=== PATIENT | female | born 1940 | race Caucasian/White ===

== ENCOUNTER 2017-11-18 08:09 | Day surgery (SDC) | payer MEDICARE, OTHER ==
[~2017-11-18 08:09] MED LIST: BUPIVACAINE HCL 0.75% INJ/PF (7.5 MG/1 ML) 10 ML SDV OS PRN; EPINEPHRINE INJ/PF 1 MG/1 ML AMPULE ONE; KETOROLAC TROMETHAMINE 0.45% 4 DROP/0.4 ML DROPERETTE OS PRN; LIDOCAINE 1% INJ-PF (10 MG/ML) 30 ML SDV ONE; LIDOCAINE 4% INJ/PF (40 MG/ML) 5 ML AMPUL OS PRN
[2017-11-18] MEDS: TETRACAINE HCL 0.5% OPH SOLN 0.6 ML DROPERETTE OS PRN ×2 (09:03→09:26)
[2017-11-18] MEDS: TROPICAMIDE 1% OPH SOLN 3 ML OS PRN ×3 (09:04→09:25)
[2017-11-18] MEDS: CYCLOPENTOLATE 0.2%/PHENYLEPHRINE 1% OPH SOLN 2 ML OS PRN ×3 (09:04→09:25)
[2017-11-18] MEDS: BESIFLOXACIN HCL 0.6% OPH SUSP 5 ML BOTTLE OS PRN ×4 (09:05→10:08)
[2017-11-18] MEDS ORDERED: MIDAZOLAM 2 MG/2 ML INJ ONE (09:25)
[2017-11-18] MEDS ORDERED: FENTANYL CITRATE INJ/PF 100 MCG/2 ML AMPUL ONE (09:26)
[2017-11-18] MEDS: CHONDR SU A NA/HYALUR INTRAOC KIT (SURGICARE) ONE ×2 (10:00)
--- NOTE | 2017-11-18 11:13 | [facility] OPERATIVE REPORT E ---
[facility] Operative Report NAME: LAUREN ANG AGE: 77Y DATE OF SURGERY: 11/18/2017 ROOM: PREOPERATIVE DIAGNOSIS: Cataract, left eye. POSTOPERATIVE DIAGNOSIS: Cataract, left eye. OPERATION: Phacoemulsification with posterior chamber intraocular lens, left eye. SURGEON: ALFREDO ROBINS M.D. ANESTHESIA: Topical with MAC. INDICATIONS FOR SURGERY: Difficulty reading captions on TV. PROCEDURE: The patient was brought to the Operating Room and placed on the operative table. Following tetracaine drops, topical anesthesia was administered. This consisted of instrument wipe pledgets soaked in a solution of 4% Xylocaine mixed with 0.75% Marcaine in a 1:2 ratio. A 2 x 1 cm pledget was placed in the superior fornix. A 1 x 1 cm pledget was placed in the inferior fornix. The eye was patched shut for 5 minutes. The patch was removed. The eye was sterilely prepped and draped in the usual manner. Lid speculum was placed in the eye. The pledgets were removed. 4-0 black silk sutures were placed around the superior and the inferior rectus muscles to be used as traction. A conjunctival peritomy was made at the 10 o'clock position. Hemostasis was obtained with bipolar cautery. A posterior limbal groove was created using a crescent knife and dissected anteriorly towards the cornea. A sharp point blade was used to create a paracentesis site at the 2 o'clock position. A 2.4 mm keratome was used to enter the anterior chamber through the groove. Viscoelastic was injected into the anterior chamber. An anterior capsulotomy was performed using Utrata forceps in a capsulorrhexis fashion. Hydrodissection and hydrodelineation were performed. Phacoemulsification was performed in [id number]-[id number] technique. A total of 1 minute 13 seconds phaco time was used. Following this, the I/A unit was used to remove residual cortex. Viscoelastic was injected into the capsular bag. Intraocular lens model [id number], 20.5 diopters, serial number [id number] was placed in the capsular bag. The I/A unit was used to remove residual viscoelastic. The wound was seen to be watertight under high and low pressure, and no sutures were placed. The intraocular lens was well centered. The pressure was adjusted in the eye to normal pressure. The 4-0 black silk sutures and lid speculum were removed. The eye was shielded after Besivance drops were placed. The patient tolerated the procedure well and was sent to the Recovery Room in good condition. DICTATING PHYSICIAN: ALFREDO ROBINS M.D. [id number] PHY#: [id number] ID: [id number] JOB#: [id number] ACCT: [id number] cc:ALFREDO ROBINS M.D. >
--- NOTE | 2017-11-18 11:21 | [facility] DISCHARGE SUMMARY E ---
[facility] Discharge Summary NAME: LAUREN ANG AGE: 77Y ADMITTED: 11/18/2017 DISCHARGED: FINAL DIAGNOSIS: Cataract, left eye. HOSPITAL COURSE: The patient is a 77-year-old lady who underwent uneventful cataract extraction with intraocular lens implant left eye on 11/18/2017. She will be discharged to home. She is instructed to resume preoperative medications, take Tylenol as needed for discomfort, to keep her eye shielded, to use Besivance, Durezol, and Prolensa at 3 p.m. and 8 p.m., and to follow up in my office in 1 day. DICTATING PHYSICIAN: ALFREDO ROBINS M.D. [id number] PHY#: [id number] ID: [id number] JOB#: [id number] ACCT: [id number] cc:ALFREDO ROBINS M.D. >
== END 2017-11-18 10:51 | disposition home or self-care (01) ==
LOC: SC 08:09
PROVIDERS: ATTEND Ophthalmology
DX: H25.13 Age-related nuclear cataract, bilateral (principal); H04.123 Dry eye syndrome of bilateral lacrimal glands; H40.013 Open angle with borderline findings, low risk, bilateral; M19.90 Unspecified osteoarthritis, unspecified site; I48.91 Unspecified atrial fibrillation; K21.9 Gastro-esophageal reflux disease without esophagitis; E78.00 Pure hypercholesterolemia, unspecified; Z79.01 Long term (current) use of anticoagulants; Z88.8 Allergy status to other drugs, medicaments and biological substances; Z79.82 Long term (current) use of aspirin; Z79.891 Long term (current) use of opiate analgesic
CPT/HCPCS: 66984; V2632; J2250; J3490 ×4; A9270; J3010; 142; J0171

== ENCOUNTER 2017-12-09 09:21 | Day surgery (SDC) | payer MEDICARE, OTHER ==
[~2017-12-09 09:21] MED LIST changes: +BUPIVACAINE HCL 0.75% INJ/PF (7.5 MG/1 ML) 10 ML SDV OD PRN; -BUPIVACAINE HCL 0.75% INJ/PF (7.5 MG/1 ML) 10 ML SDV OS PRN; -EPINEPHRINE INJ/PF 1 MG/1 ML AMPULE ONE; -KETOROLAC TROMETHAMINE 0.45% 4 DROP/0.4 ML DROPERETTE OS PRN; -LIDOCAINE 1% INJ-PF (10 MG/ML) 30 ML SDV ONE; +LIDOCAINE 4% INJ/PF (40 MG/ML) 5 ML AMPUL OD PRN; -LIDOCAINE 4% INJ/PF (40 MG/ML) 5 ML AMPUL OS PRN; +MIDAZOLAM 2 MG/2 ML INJ ONE
[2017-12-09] MEDS ORDERED: CHONDR SU A NA/HYALUR INTRAOC KIT (SURGICARE) ONE (09:59)
[2017-12-09] MEDS ORDERED: LIDOCAINE 1% INJ-PF (10 MG/ML) 30 ML SDV ONE (09:59)
[2017-12-09] MEDS: TROPICAMIDE 1% OPH SOLN 3 ML OD PRN ×3 (10:37→11:00)
[2017-12-09] MEDS: CYCLOPENTOLATE 0.2%/PHENYLEPHRINE 1% OPH SOLN 2 ML OD PRN ×3 (10:37→11:00)
[2017-12-09] MEDS: TETRACAINE HCL 0.5% OPH SOLN 0.6 ML DROPERETTE OD PRN ×2 (10:37→11:00)
[2017-12-09] MEDS: BESIFLOXACIN HCL 0.6% OPH SUSP 5 ML BOTTLE OD PRN ×3 (10:37→11:51)
[2017-12-09] MEDS: KETOROLAC TROMETHAMINE 0.45% 4 DROP/0.4 ML DROPERETTE OD PRN ×2 (10:37→12:02)
--- NOTE | 2018-01-15 21:21 | [facility] OPERATIVE REPORT E ---
[facility] Operative Report NAME: LAUREN ANG AGE: 77Y DATE OF SURGERY: 12/09/2017 ROOM: PREOPERATIVE DIAGNOSIS: CATARACT, RIGHT EYE. POSTOPERATIVE DIAGNOSIS: CATARACT, RIGHT EYE. OPERATION: Phacoemulsification with posterior chamber intraocular lens, right eye. SURGEON: ALFREDO ROBINS M.D. ANESTHESIA: Topical with MAC. INDICATIONS FOR SURGERY: Difficulty reading. PROCEDURE: The patient was brought to the Operating Room and placed on the operative table. Following tetracaine drops, topical anesthesia was administered. This consisted of instrument wipe pledgets soaked in a solution of 4% Xylocaine mixed with 0.75% Marcaine in a 1:2 ratio. A 2 x 1 cm pledget was placed in the superior fornix. A 1 x 1 cm pledget was placed in the inferior fornix. The eye was patched shut for 5 minutes. The patch was removed. The eye was sterilely prepped and draped in the usual manner. Lid speculum was placed in the eye. The pledgets were removed. 4-0 black silk sutures were placed around the superior and the inferior rectus muscles to be used as traction. A conjunctival peritomy was made at the 10 o'clock position. Hemostasis was obtained with bipolar cautery. A posterior limbal groove was created using a crescent knife and dissected anteriorly towards the cornea. A sharp point blade was used to create a paracentesis site at the 2 o'clock position. A 2.4 mm keratome was used to enter the anterior chamber through the groove. Viscoelastic was injected into the anterior chamber. An anterior capsulotomy was performed using Utrata forceps in a capsulorrhexis fashion. Hydrodissection and hydrodelineation were performed. Phacoemulsification was performed in kderrh-yvj-qktwevo technique. A total of 9.98 CDE phaco time was used. Following this, the I/A unit was used to remove residual cortex. Viscoelastic was injected into the capsular bag. Intraocular lens model SN60WF, 19.0 diopters, serial number [id number] was placed in the capsular bag. The I/A unit was used to remove residual viscoelastic. The wound was seen to be watertight under high and low pressure, and no sutures were placed. The intraocular lens was well centered. The pressure was adjusted in the eye to normal pressure. The 4-0 black silk sutures and lid speculum were removed. The eye was shielded after Besivance drops were placed. The patient tolerated the procedure well and was sent to the Recovery Room in good condition. DICTATING PHYSICIAN: ALFREDO ROBINS M.D. DICTATING PHYSICIAN: ALFREDO ROBINS M.D. [id number] PHY#: [id number] ID: [id number] JOB#: [id number] ACCT: [id number] cc:ALFREDO ROBINS M.D. >
--- NOTE | 2018-01-15 21:21 | [facility] DISCHARGE SUMMARY E ---
[facility] Discharge Summary NAME: LAUREN ANG AGE: 77Y ADMITTED: 12/09/2017 DISCHARGED: 12/09/2017 HOSPITAL COURSE: The patient is a 77-year-old lady who underwent uneventful cataract extraction with intraocular lens implant, right eye, on 12/09/2017. She will be discharged to home. DISCHARGE INSTRUCTIONS: She is instructed to resume preoperative medications. Take Tylenol as needed for discomfort. To keep her eye shielded. To use Durezol, Prolensa and Besivance at 3 p.m. and 8 p.m. To follow up in my office in 1 day. DICTATING PHYSICIAN: ALFREDO ROBINS M.D. [id number] PHY#: [id number] ID: [id number] JOB#: [id number] ACCT: [id number] cc:ALFREDO ROBINS M.D. >
== END 2017-12-09 12:30 | disposition home or self-care (01) ==
LOC: SC 09:21
PROVIDERS: ATTEND Ophthalmology
DX: H25.11 Age-related nuclear cataract, right eye (principal); I10 Essential (primary) hypertension; K21.9 Gastro-esophageal reflux disease without esophagitis; I48.91 Unspecified atrial fibrillation; Z79.899 Other long term (current) drug therapy; Z79.01 Long term (current) use of anticoagulants; Z88.8 Allergy status to other drugs, medicaments and biological substances; Z87.891 Personal history of nicotine dependence
CPT/HCPCS: 66984; V2632; J2250; J3490 ×4; A9270; 142

== ENCOUNTER → 2018-08-14 | Outpatient (CLI) | payer MEDICARE, OTHER ==
--- NOTE | 2018-08-14 10:44 | RADIOLOGY REPORT (SQ) ---
EXAM DESCRIPTION: MRI HEAD WITHOUT COMPLETED DATE/TIME: 08/14/2018 8:25 am REASON FOR STUDY: ATAXIA (R27.0) R27.0 ATAXIA, UNSPECIFIED COMPARISON: None. TECHNIQUE: Multiplanar imaging includes non-contrasted T1, T2, FLAIR, and diffusion with ADC map seq uences. Images stored on PACS. LIMITATIONS: None. FINDINGS: ANATOMY: No anomalies. Normal vascular flow voids. Pituitary fossa normal. CSF SPACES: Normal in size and contour. No hemorrhage. CEREBRUM: Sulci and gyri normal in size and contour. Multiple small areas of increased white matter signal on FLAIR imaging. No evidence of hemorrhage, mass, or extraaxial fluid collection. POSTERIOR FOSSA: No signal alteration. No hemorrhage. No edema, masses or mass effect. Internal esmer tory canals, cerebello-pontine angles, mastoids normal. DIFFUSION IMAGING: Negative for acute or sub-acute infarction. ORBITS: No masses. Globes normal. PARANASAL SINUSES: No fluid levels. Mucosa normal. OTHER: No other significant finding. IMPRESSION: Chronic microvascular ischemia with no acute intracranial imaging findings. EVIDENCE OF ACUTE STROKE: NO. TECHNICAL DOCUMENTATION: JOB ID: [id number] [employer]- All Rights Reserved Reading location - IP/workstation name: [email or web address]
== END ==
LOC: RAD 07:27
PROVIDERS: ATTEND Internal Medicine
DX: I67.82 Cerebral ischemia (principal); R27.0 Ataxia, unspecified
CPT/HCPCS: 70551

== ENCOUNTER → 2018-12-10 | Outpatient (CLI) | payer MEDICARE, OTHER ==
--- NOTE | 2018-12-10 16:19 | RADIOLOGY REPORT (SQ) ---
EXAM DESCRIPTION: CAROTID DOPPLER COMPLETED DATE/TIME: 12/10/2018 2:56 pm REASON FOR STUDY: DIZZINESS R42 DIZZINESS AND GIDDINESS COMPARISON: CT brain 07/15/2011, 05/15/2013 MRI brain 08/14/2018 TECHNIQUE: Grayscale ultrasound, Doppler velocity and spectra, and color Doppler images acquired of the extra-cranial carotid and vertebral arteries. Images stored on PACS. LIMITATIONS: None. FINDINGS: RIGHT CAROTID CCA Velocities: Within normal limits. Right common carotid artery peak systolic velocity 0.68 m/sec ICA Velocities Peak systolic 0.32 m/s. End diastolic 0.16 m/s. Proximal ICA/CCA peak systolic ratio 2.2. Very heavy calcific plaque at the right carotid bifurcation is present with acoustic shadowing. Dist al to the shadowing plaque, velocities suggest against flow significant stenosis. LEFT CAROTID CCA Velocities: Within normal limits. Left common carotid artery peak systolic velocity 0.70 m/sec. ICA Velocities Peak systolic 0.46 m/s. End diastolic 0.13 m/s. Proximal ICA/CCA peak systolic ratio 1.1 Very heavy calcific plaque at the left carotid bifurcation is present with acoustic shadowing. Dista l to the shadowing plaque, velocities suggest against flow significant stenosis VERTEBRAL ARTERIES: Color flow documented in the right vertebral antegrade, unable to obtain Doppler tracing. Antegrade pulsatile flow left vertebral artery with normal waveform. SUBCLAVIAN ARTERIES: Not examined OTHER: No other significant finding. IMPRESSION: Very heavily calcified carotid bifurcations. No flow significant stenosis by velocity. COMMENT: Quality ID #[id number]: Velocity criteria are extrapolated from the diameter data as defined by t he Society of Radiologists in Ultrasound Consensus Conference. Radiology 2003: 229; 340-346. TECHNICAL DOCUMENTATION: JOB ID: [id number] [employer]- All Rights Reserved Reading location - IP/workstation name: [email or web address]
== END ==
LOC: SP 12:42
PROVIDERS: ATTEND Family Medicine
DX: I65.22 Occlusion and stenosis of left carotid artery (principal); R42 Dizziness and giddiness
CPT/HCPCS: 93880

== ENCOUNTER 2018-12-16 15:35 | Inpatient (IN) | payer MEDICARE, OTHER ==
[2018-12-16] MEDS ORDERED: NORMAL SALINE 1000 ML 1,000 ML IV ONE ×2 (16:12→16:35)
--- NOTE | 2018-12-16 16:12 | ER Document Report ---
ED Medical Screen (RME) - General Chief Complaint: Diarrhea Stated Complaint: DIARRHEA Time Seen by Provider: 12/16/18 16:01 Primary Care Provider: NABILA NUNEZ MD [Primary Care Provider] - Follow up as needed TRAVEL OUTSIDE OF THE [place] IN LAST 30 DAYS: No - HPI Notes: 12/16/18 16:13 78-year-old female to the emergency department with with complaints of 9 days of profuse watery diarrhea. She states that she has had upwards of 10 episodes daily. Of note her has been under treatment for C. difficile colitis since the spring. He currently still has active disease in either is completing a round of vancomycin or has just completed around. Patient states that she feels weak. She states that she has been trying to hydrate but without success. She denies any recent travel or recent antibiotic use herself. She denies any recent new diet changes. I performed a medical screening exam on patient. I have ordered initial labs as well as stool cultures to evaluate patient further. Ordered liter of fluid as well. Patient agrees with the plan. - Related Data Allergies/Adverse Reactions: nickel [Nickel] Allergy (Severe, Verified 12/09/17 11:11) breaks out epinephrine [Epinephrine] Adverse Reaction (Severe, Verified 12/09/17 11:11) makes me pass out Past Medical History - Past Medical History Cardiac Medical History: Reports: Hx Atrial Fibrillation, Hx Hypercholesterolemia, Hx Hypertension - meds x 15 yrs Denies: Hx Coronary Artery Disease, Hx Heart Attack Pulmonary Medical History: Denies: Hx Asthma, Hx Bronchitis, Hx COPD, Hx Pneumonia Neurological Medical History: Denies: Hx Cerebrovascular Accident, Hx Seizures GI Medical History: Denies: Hx Hepatitis, Hx Hiatal Hernia, Hx Ulcer Musculoskeltal Medical History: 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 Infectious Medical History: Denies: Hx Hepatitis Past Surgical History: Denies: Hx Mastectomy, Hx Open Heart Surgery, Hx Pacema ker - Immunizations Hx Diphtheria, Pertussis, Tetanus Vaccination: Yes Physical Exam - Vital signs Vitals: Temp Pulse Resp BP Pulse Ox 97.7 F 90 20 60/36 L 95 12/16/18 15:45 12/16/18 15:45 12/16/18 15:45 12/16/18 15:45 12/16/18 15:45 Course - Vital Signs Vital signs: Temp Pulse Resp BP Pulse Ox 97.7 F 90 20 72/53 L 95 12/16/18 15:45 12/16/18 15:45 12/16/18 15:45 12/16/18 15:52 12/16/18 15:45 Doctor's Discharge - Discharge Referrals: NABILA NUNEZ MD [Primary Care Provider] - Follow up as needed
--- NOTE | 2018-12-16 16:41 | ER Document Report ---
ED General - General Chief Complaint: Diarrhea Stated Complaint: DIARRHEA Time Seen by Provider: 12/16/18 16:01 Primary Care Provider: NABILA NUNEZ MD [Primary Care Provider] - Follow up as needed TRAVEL OUTSIDE OF THE [place] IN LAST 30 DAYS: No - HPI Patient complains to provider of: diarrhea Notes: 78-year-old female presents with 3-day history of increasing watery diarrhea. Weakness and fatigue is gotten worse and worse with this profuse watery diarrhea. Her has been treated multiple times for C. difficile since the beginning of the year. She is concerned she may have gotten C. difficile. Patient denies fever, abdominal pain, nausea, vomiting. No recent antibiotic use, travel or any other inciting factors to this diarrheal illness she can think of - Related Data Allergies/Adverse Reactions: nickel [Nickel] Allergy (Severe, Verified 12/09/17 11:11) breaks out epinephrine [Epinephrine] Adverse Reaction (Severe, Verified 12/09/17 11:11) makes me pass out Past Medical History - Social History Smoking Status: Former Smoker Drug Abuse: None Family History: Reviewed & Not Pertinent Patient has suicidal ideation: No Patient has homicidal ideation: No - Past Medical History Cardiac Medical History: Reports: Hx Atrial Fibrillation, Hx Hypercholesterolemia, Hx Hypertension - meds x 15 yrs Denies: Hx Coronary Artery Disease, Hx Heart Attack Pulmonary Medical History: Denies: Hx Asthma, Hx Bronchitis, Hx COPD, Hx Pneumonia Neurological Medical History: Denies: Hx Cerebrovascular Accident, Hx Seizures GI Medical History: Denies: Hx Hepatitis, Hx Hiatal Hernia, Hx Ulcer Musculoskeletal Medical History: 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 RESPIRATORY: -cough, -SOB GASTROINTESTINAL: -abdominal pain, -nausea, -vomiting, positive diarrhea GENITOURINARY: -dysuria, -hematuria MUSCULOSKELETAL: -back pain, -neck pain SKIN: -rash or skin lesions. HEMATOLOGIC: -easy bruising or bleeding. LYMPHATIC: -swollen, enlarged glands. NEUROLOGICAL: -altered mental status or loss of consciousness, -headache, - neurologic symptoms PSYCHIATRIC: -anxiety, -depression. ALL OTHER SYSTEMS REVIEWED AND NEGATIVE. Physical Exam - Vital signs Vitals: Temp Pulse Resp BP Pulse Ox 97.7 F 90 20 60/36 L 95 12/16/18 15:45 12/16/18 15:45 12/16/18 15:45 12/16/18 15:45 12/16/18 15:45 - Notes Notes: PHYSICAL EXAMINATION: GENERAL: Well-appearing, well-nourished and in no acute distress. HEAD: Atraumatic, normocephalic. EYES: Pupils equal round and reactive to light, extraocular movements intact, sclera anicteric, conjunctiva are normal. ENT: nares patent, oropharynx clear without exudates. Moist mucous membranes. NECK: Normal range of motion, supple without lymphadenopathy LUNGS: Breath sounds clear to auscultation bilaterally and equal. No wheezes rales or rhonchi. HEART: Regular rate and rhythm without murmurs ABDOMEN: Soft, nontender, normoactive bowel sounds. No guarding, no rebound. No masses appreciated. EXTREMITIES: Normal range of motion, no pitting or edema. No cyanosis. NEUROLOGICAL: Cranial nerves grossly intact. Normal speech, normal gait. Normal sensory and motor exams. PSYCH: Normal mood, normal affect. SKIN: Warm, Dry, normal turgor, no rashes or lesions noted. Course - Re-evaluation Re-evalutation: 12/16/18 16:41 Well-appearing female stable vitals within normal limits, systolic blood pressure is not 60, initial systolic blood pressure recorded 128. Patient states she says that blood pressure at home is wrong she has been ambulatory feeling no lightheaded symptoms. She told the nurse this. Begin aggressive fluid resuscitation. Patient does have a crick recorded systolic blood pressure about 80 1:02 liter fluid in. I presume the switch to cuff this does appear to be her normal blood pressure at this time. Will initiate aggressive fluid resuscitation of 2 L of fluid. Lactic acid drawn as her blood cultures. She had a profound leukocytosis of 23,000. Patient also has significant kidney injury her creatinine is 3.58. She has exposures to C. difficile. Presume she does have a C. difficile infection. Patient has 2 bowel movements but is unable to get the bowel movements into the hat for specimen. Will initiate antibiotic therapy with vancomycin orally and metronidazole IV Patient will be admitted to hospital for further management. 12/16/18 18:02 - Vital Signs Vital signs: Temp Pulse Resp BP Pulse Ox 97.7 F 90 20 72/53 L 95 12/16/18 15:45 12/16/18 15:45 12/16/18 15:45 12/16/18 15:52 12/16/18 15:45 - Laboratory Result Diagrams: 12/16/18 16:40 12/16/18 17:05 Laboratory results interpreted by me: 12/16/18 12/16/18 16:40 17:05 WBC 23.5 H Seg Neuts % (Manual) 85 H Lymphocytes % (Manual) 4 L Abs Neuts (Manual) 21.2 H Carbon Dioxide 21 L BUN 67 H Creatinine 3.58 H Est GFR ( Amer) 15 L Est GFR (MDRD) Non-Af 12 L Total Protein 5.8 L Albumin 3.0 L Critical Care Note - Critical Care Note Total time excluding time spent on procedures (mins): 36 Discharge - Discharge Clinical Impression: Dehydration, C. difficile colitis Hypotension Qualifiers: Hypotension type: unspecified hypotension type Qualified Code(s): I95.9 - Hypotension, unspecified Condition: Stable Disposition: ADMITTED INPATIENT Admitting Provider: Nely (Hospitalist) Unit Admitted: Medical Floor Referrals: NABILA NUNEZ MD [Primary Care Provider] - Follow up as needed
[2018-12-16 16:57] LABS: HEMATOCRIT 42.8 % (36.0-47.0); HEMOGLOBIN 14.4 g/dL (12.0-15.5); MEAN CORPUSCULAR HEMOGLOBIN 31.3 pg (27.0-33.4); MEAN CORPUSCULAR HGB CONC 33.6 g/dL (32.0-36.0); MEAN CORPUSCULAR VOLUME 93 fl (80-97); PLATELET COUNT 350 10^3/uL (150-450); RED BLOOD COUNT 4.61 10^6/uL (3.72-5.28); RED CELL DISTRIBUTION WIDTH 12.8 % (11.5-14.0); WHITE BLOOD COUNT 23.5 10^3/uL (4.0-10.5)
[2018-12-16 17:20] LABS: ABSOLUTE LYMPHOCYTES# (MANUAL) 0.9 10^3/uL (0.5-4.7); ABSOLUTE MONOCYTES # (MANUAL) 1.4 10^3/uL (0.1-1.4); BAND NEUTROPHILS % (MANUAL) 5 % (3-5); BASOPHILS % (MANUAL) 0 % (0-2); EOSINOPHILS % (MANUAL) 0 % (0-6); LYMPHOCYTES % (MANUAL) 4 % (13-45); MONOCYTES % (MANUAL) 6 % (3-13); SEGMENTED NEUTROPHILS % (MAN) 85 % (42-78); TOTAL CELLS COUNTED 100
[2018-12-16 17:29] LABS: POLYCHROMASIA SLIGHT; TOXIC VACUOLATION PRESENT
[2018-12-16 17:30] LABS: PLATELET COMMENT ADEQUATE
[2018-12-16 17:41] LABS: ALKALINE PHOSPHATASE 69 U/L (38-126); ANION GAP 13 (5-19); ASPARTATE AMINO TRANSFERASE 17 U/L (14-36); BILIRUBIN,DIRECT 0.2 mg/dL (0.0-0.4); BILIRUBIN,TOTAL 0.4 mg/dL (0.2-1.3); BLOOD UREA NITROGEN 67 mg/dL (7-20); CALCIUM 9.2 mg/dL (8.4-10.2); CARBON DIOXIDE 21 mmol/L (22-30); CHLORIDE 104 mmol/L (98-107); GLUCOSE 100 mg/dL (75-110); POTASSIUM 4.6 mmol/L (3.6-5.0); TOTAL PROTEIN 5.8 g/dL (6.3-8.2)
[2018-12-16] MEDS ORDERED: VANCOMYCIN HCL INJ 500 MG VIAL PO ONE ×2 (17:50→18:08)
[2018-12-16] MEDS ORDERED: METRONIDAZOLE RTU 500 MG/NS 100 ML IV ONE (17:50)
--- NOTE | 2018-12-16 18:41 | RADIOLOGY REPORT (SQ) ---
EXAM DESCRIPTION: CT ABD/PELVIS NO ORAL OR IV COMPLETED DATE/TIME: 12/16/2018 6:25 pm REASON FOR STUDY: abdominal pain COMPARISON: None. TECHNIQUE: CT scan of the abdomen and pelvis performed without intravenous or oral contrast. Images reviewed with lung, soft tissue, and bone windows. Reconstructed coronal and sagittal MPR images revi ewed. All images stored on PACS. All CT scanners at this facility use dose modulation, iterative reconstruction, and/or weight based d osing when appropriate to reduce radiation dose to as low as reasonably achievable (ALARA). [facility]: Dose Right [facility]: CareDose [facility]: Dose Right [facility]: Teradose 4D [facility]: [employer] RADIATION DOSE: mGy. LIMITATIONS: None. FINDINGS: LOWER CHEST: No significant findings. No nodules or infiltrates. NON-CONTRASTED LIVER, SPLEEN, ADRENALS: Evaluation limited by lack of IV contrast. No identified sign ificant masses. PANCREAS: No masses. No peripancreatic inflammatory changes. GALLBLADDER: No identified stones by CT criteria. No inflammatory changes to suggest cholecystitis. RIGHT KIDNEY AND URETER: No suspicious masses. Assessment limited by lack of IV contrast. No signif icant calcifications. No hydronephrosis or hydroureter. LEFT KIDNEY AND URETER: No suspicious masses. Assessment limited by lack of IV contrast. Small exoph ytic cysts. No significant calcifications. No hydronephrosis or hydroureter. AORTA AND RETROPERITONEUM: No aneurysm. No retroperitoneal masses or adenopathy. BOWEL AND PERITONEAL CAVITY: Generalize diverticulosis. There is also generalized mild thickening of the bowel wall and pericolonic fat stranding. Suggests mild colitis. Findings do not suggest diver ticulitis. APPENDIX: Normal. PELVIS, BLADDER, AND ABDOMINAL WALL:No abnormal masses. No free fluid. Bladder normal. BONES: No significant findings. OTHER: No other significant finding. IMPRESSION: Generalize diverticulosis. There is also generalized thickening of the bowel wall with mild pericolonic fat stranding diffusely through the colon. Suggests colitis superimposed on diverti culosis. COMMENT: Quality ID # [id number]: Final reports with documentation of one or more dose reduction techniques (e.g., Automated exposure control, adjustment of the mA and/or kV according to patient size, use of iterative reconstruction technique) TECHNICAL DOCUMENTATION: JOB ID: [id number] [employer]- All Rights Reserved Reading location - IP/workstation name: [email or web address]
[2018-12-16] MEDS ORDERED: MAGNESIUM HYDROXIDE SUSP 30 ML UDCUP PO PRN (19:11)
[2018-12-16] MEDS ORDERED: FENTANYL CITRATE INJ/PF 100 MCG/2 ML AMPUL IV PRN (19:25)
--- NOTE | 2018-12-16 19:49 | PDOC H&P ---
History of Present Illness Admission Date/PCP: 12/16/18 18:13 NABILA NUNEZ MD Patient complains of: Abdominal pain with profuse watery diarrhea History of Present Illness: LAUREN ANG is a 78 year old female with a past medical history of chronic kidney disease, atrial fibrillation, hypertension and hyperlipidemia. Her has been struggling with C. difficile for weeks now. 2 weeks ago the patient had diarrhea from Friday through Friday and then was better. From Friday evening through today she has been having profuse watery diarrhea with n ausea but no vomiting. Her appetite is been decreased. She is not drinking as much fluid as she usually does. She presents today with abdominal pain and acute on chronic kidney injury as well as hypotension meeting the criteria for sepsis. She was given IV fluids in the emergency department. Lactic acid was ordered but not collected yet. She was referred to the hospitalist service for admission. Past Medical History Cardiac Medical History: Reports: Atrial Fibrillation, Hyperlipidema, Hypertension - meds x 15 yrs Denies: Coronary Artery Disease, Myocardial Infarction Pulmonary Medical History: Denies: Asthma, Bronchitis, Chronic Obstructive Pulmonary Disease (COPD), Pneumonia EENT Medical History: Reports: Cataracts Neurological Medical History: Denies: Ischemic CVA, Seizures Endocrine Medical History: Denies: Diabetes Mellitus Type 2 Renal/ Medical History: Reports: Chronic Kidney Disease Malignancy Medical History: Denies: Breast Cancer, Colorectal Cancer GI Medical History: Denies: Hepatitis, Hiatal Hernia Musculoskeltal Medical History: Reports: Arthritis - hips Denies: Fibromyalgia, Gout Skin Medical History: Denies: Eczema, Psoriasis Psychiatric Medical History: Denies: Alcohol Dependency, Depression, Substance Abuse, Tobacco Dependency Traumatic Medical History: Reports: None Hematology: Reports: Other - Chronic anticoagulation Denies: Anemia, Sickle Cell Disease Past Surgical History Past Surgical History: Reports: Other - Cataract surgery Denies: Amputation, Mastectomy, Pacemaker Social History Information Source: Patient Lives with: Spouse/Significant other Smoking Status: Former Smoker Frequency of Alcohol Use: Occasional Hx Recreational Drug Use: No Hx Prescription Drug Abuse: No - Advance Directive Resuscitation Status: Full Code Surrogate healthcare decision maker:: is the designated decision maker Family History Family History: Reviewed & Not Pertinent Parental Family History Reviewed: Yes Children Family History Reviewed: Yes Sibling(s) Family History Reviewed.: Yes Medication/Allergy Home Medications: Atenolol [Tenormin] 25 mg PO DAILY 07/15/11 Potassium Chloride [Klor-Con 10 Meq Tablet.sa] 10 meq PO BID 07/15/11 Tramadol HCl [Ultram 50 mg Tablet] 50 mg PO ASDIR PRN 07/15/11 Lisinopril/Hydrochlorothiazide [Lisinopril-Hctz 10-12.5 mg Tab] 1 tab PO DAILY 04/13/14 Rivaroxaban [Xarelto 10 mg Tablet] 20 mg PO DAILY 04/13/14 Alendronate Sodium [Fosamax 70 mg Tablet] 1 tab PO ACBRKFST 11/14/17 Aspirin [Ecotrin 81 mg EC Tablet] 81 mg PO DAILY 11/14/17 Besifloxacin HCl [Besivance 0.6% Oph Susp 5 ml] 1 drop OP ASDIR PRN 11/14/17 Bromfenac Sodium [Prolensa] 1.6 ml OP ASDIR PRN 11/14/17 Calcium Carbonate [Oyster Shell Calcium] 500 mg PO DAILY 11/14/17 Difluprednate [Durezol] 5 ml OP ASDIR PRN 11/14/17 Ergocalciferol (Vitamin D2) [Vitamin D2] 50,000 unit PO ASDIR PRN 11/14/17 Isosorbide Mononitrate [Imdur 60 mg Tablet.er] 60 mg PO DAILY 11/14/17 Omeprazole 20 mg PO DAILY 11/14/17 Simvastatin 40 mg PO DAILY 11/14/17 Allergies/Adverse Reactions: nickel [Nickel] Allergy (Severe, Verified 12/09/17 11:11) breaks out epinephrine [Epinephrine] Adverse Reaction (Severe, Verified 12/09/17 11:11) makes me pass out Review of Systems Constitutional: PRESENT: anorexia. ABSENT: chills, fever(s), night sweats Eyes: ABSENT: visual disturbances Ears: ABSENT: hearing changes Nose, Mouth, and Throat: ABSENT: headache(s), mouth pain, sore throat Cardiovascular: ABSENT: chest pain, edema, palpitations Respiratory: ABSENT: cough, hemoptysis, sputum Gastrointestinal: PRESENT: abdominal pain, diarrhea, nausea. ABSENT: hematemesis, hematochezia, vomiting Genitourinary: ABSENT: difficulty urinating, dysuria, hematuria Musculoskeletal: ABSENT: deformity, joint swelling, muscle weakness Integumentary: ABSENT: diaphoresis, erythema, rash, wounds Neurological: ABSENT: abnormal movements, abnormal speech, frequent falls, memory loss, syncope, tremor(s), weakness Psychiatric: ABSENT: anxiety, depression, hallucinations Endocrine: ABSENT: cold intolerance, heat intolerance, polydipsia, polyphagia, polyuria Hematologic/Lymphatic: PRESENT: easy bruising. ABSENT: lymphadenopathy Physical Exam Vital Signs: Temp Pulse Resp BP Pulse Ox 97.7 F 90 20 72/53 L 95 12/16/18 15:45 12/16/18 15:45 12/16/18 15:45 12/16/18 15:52 12/16/18 15:45 Intake & Output 12/15/18 12/16/18 12/17/18 06:59 06:59 06:59 Intake Total 1000 Balance 1000 Weight 87.5 kg General appearance: PRESENT: cooperative, mild distress, well-developed Head exam: PRESENT: atraumatic, normocephalic Eye exam: PRESENT: conjunctiva pink, EOMI. ABSENT: periorbital swelling, scleral icterus Ear exam: PRESENT: normal external ear exam. ABSENT: bleeding, drainage Mouth exam: PRESENT: dry mucosa, neck supple, tongue midline Teeth exam: ABSENT: dental tenderness, poor dentation Neck exam: ABSENT: carotid bruit, JVD, lymphadenopathy, tenderness Respiratory exam: PRESENT: clear to auscultation christin, symmetrical, unlabored. ABSENT: accessory muscle use, rales, rhonchi, tachypnea, wheezes Cardiovascular exam: PRESENT: RRR, +S1, +S2. ABSENT: diastolic murmur, systolic murmur GI/Abdominal exam: PRESENT: normal bowel sounds, soft, tenderness - Right upper quadrant and left lower quadrant. ABSENT: distended, guarding Rectal exam: PRESENT: deferred Gentrourinary exam: ABSENT: indwelling catheter Extremities exam: ABSENT: calf tenderness, joint swelling, pedal edema Musculoskeletal exam: PRESENT: ambulatory, normal inspection. ABSENT: deformity Neurological exam: PRESENT: alert, awake, oriented to person, oriented to place, oriented to time, oriented to situation, CN II-XII grossly intact. ABSENT: motor sensory deficit Psychiatric exam: PRESENT: appropriate affect. ABSENT: agitated, anxious Focused psych exam: ABSENT: delusional, restlessness Skin exam: PRESENT: dry, normal color, warm. ABSENT: rash Results Laboratory Results: 12/16/18 16:40 12/16/18 17:05 12/16/18 12/16/18 12/16/18 16:40 16:40 17:05 WBC 23.5 H RBC 4.61 Hgb 14.4 Hct 42.8 MCV 93 MCH 31.3 MCHC 33.6 RDW 12.8 Plt Count 350 Seg Neutrophils % Not Reportable Sodium Cancelled 137.6 Potassium Cancelled 4.6 Chloride Cancelled 104 Carbon Dioxide Cancelled 21 L Anion Gap Cancelled 13 BUN Cancelled 67 H Creatinine Cancelled 3.58 H Est GFR ( Amer) Cancelled 15 L Est GFR (Non-Af Amer) Cancelled Glucose Cancelled 100 Calcium Cancelled 9.2 Total Bilirubin Cancelled 0.4 AST Cancelled 17 Alkaline Phosphatase Cancelled 69 Total Protein Cancelled 5.8 L Albumin Cancelled 3.0 L Impressions: Abdomen/Pelvis CT 12/16/18 17:47 IMPRESSION: Generalize diverticulosis. There is also generalized thickening of the bowel wall with mild pericolonic fat stranding diffusely through the colon. Suggests colitis superimposed on diverticulosis. Assessment and Plan - Diagnosis (1) Sepsis associated hypotension Is this a current diagnosis for this admission?: Yes Plan: 12/16/2018-sepsis secondary to C. difficile colitis. The patient's blood pressure was quite low on admission. Map was less than 70 but she has responded to large volume IV fluid resuscitation. I do not believe she will need pressor therapy. Lactic acid was ordered but not collected at the time of this encounter. Serial lactic acid and electrolyte studies have been ordered. After the bolus she will receive fluid at 200 mL an hour through the night and adjustments will be made based on chemistry results and vital signs. (2) C. difficile colitis Is this a current diagnosis for this admission?: Yes Plan: 12/16/2018-the patient was unable to provide a sample as yet. Stool for C. difficile has been ordered. Stool for ova and parasites has been ordered as well. Her has had C. difficile and has been struggling with it for weeks. This is the most likely factor. She will be started on oral vancomycin and IV metronidazole as the CT scan shows diffuse inflammation in the colon. (3) Dehydration Is this a current diagnosis for this admission?: Yes Plan: 12/16/2018-the patient has been unable to keep up with her volume loss. She will be getting large volume fluid resuscitation as noted above. She has chronic kidney disease stage III but this is an acute change due to the sepsis and hypovolemia. We will continue to monitor vital signs, intake and output as well as serum chemistries. (4) Acute renal failure superimposed on stage 3 chronic kidney disease Qualifiers: Acute renal failure type: with acute tubular necrosis Qualified Code(s): N17.0 - Acute kidney failure with tubular necrosis; N18.3 - Chronic kidney disease, stage 3 (moderate) Is this a current diagnosis for this admission?: Yes Plan: 12/16/2018-likely acute tubular necrosis from sepsis related to the C. difficile. We will continue IV fluids and monitor renal function. The goal is to get the patient back to her baseline which is stage III chronic kidney failure. (5) Atrial fibrillation Qualifiers: Atrial fibrillation type: chronic Qualified Code(s): I48.2 - Chronic atrial fibrillation Is this a current diagnosis for this admission?: Yes Plan: Because of the hypotension we will likely hold medications at this time. Once her medication reconciliation is complete we will likely resume medications that will not contribute to hypotension and we will need to adjust medications for her renal function. She will be monitored on telemetry as well. - Time Time Spent with patient: 35 or more minutes Medications reviewed and adjusted accordingly: Yes - Inpatient Certification Based on my medical assessment, after consideration of the patient's comorbidities, presenting symptoms, or acuity I expect that the services needed warrant INPATIENT care.: Yes I certify that my determination is in accordance with my understanding of Medicare's requirements for reasonable and necessary INPATIENT services [42 CFR 412.3e].: Yes Medical Necessity: Need For IV Fluids, Need for IV Antibiotics
[2018-12-16] MEDS ORDERED: RINGERS SOLUTION,LACTATED 1,000 ML IV ONE (20:19)
[2018-12-16] MEDS ORDERED: NOREPINEPHRINE BITARTRATE INJ/PF 4 MG/4 ML SDV IV ONE (21:15)
[2018-12-16] MEDS ORDERED: DEXTROSE 5%-WATER 250 ML with NOREPINEPHRINE BITARTRATE 4 MG IV PRN ×2 (21:19)
[2018-12-16 21:53] LABS: C DIFFICILE GDH POSITIVE (NEGATIVE)
[2018-12-16] MEDS ORDERED: METRONIDAZOLE 250 MG TABLET PO SCH (22:00)
[2018-12-16] MEDS: HEPARIN SOD (PORCINE) 5,000 UNIT/ML 1 ML VIAL SUBCUT SCH (22:11)
[2018-12-16] MEDS ORDERED: RIFAMPIN 300 MG CAPSULE PO ONE (22:15)
[2018-12-16] MEDS ORDERED: VANCOMYCIN HCL INJ 500 MG VIAL ONE (22:56)
[2018-12-16] MEDS ORDERED: METRONIDAZOLE 500 MG/NS RTU 500 MG/100 ML RTUPB IV ONE (22:57)
[2018-12-16] MEDS: METRONIDAZOLE 500 MG/NS RTU 500 MG/100 ML RTUPB IV SCH (23:08)
[2018-12-16] MEDS: VANCOMYCIN HCL INJ 500 MG VIAL PO SCH (23:26)
[2018-12-17] MEDS ORDERED: VANCOMYCIN HCL INJ 500 MG VIAL PO SCH
--- NOTE | 2018-12-17 01:16 | Progress Note ---
Provider Note Provider Note: Critical care: 12/16/2018 Start time: 21:36 Critical care problem: Hypotension I was informed by the patient's emergency room nurse that her blood pressure was gradually declining and at the time of initial contact I had ordered a 1 L IV fluid bolus to be administered over 30 to 60 minutes utilizing lactated Rin kim's. Prior to the administration of IV fluids patient's blood pressure had been 92/60 with a mean arterial pressure of 70, after administration of IV fluids the patient's blood pressure was 72/50 with a mean arterial pressure of 60. At that point the patient's treatment was changed from administration of IV fluids and admission to the medical floor to admission to the ICU administration of vasopressors with adjustments in her antibiotic dosage due to the presence of severe sepsis with septic shock. Patient was continued on IV fluids and was started on a Levophed infusion which was titrated to maintain adequate systolic blood pressure. Her oral vancomycin was increased to 500 mg p.o. every 6 hours and she was continued on Flagyl 500 mg IV every 6 hours. A single dose of rifampin 300 mg was administered IV. Her examination showed her lungs to be clear to auscultation and percussion in all najera. Heart showed a regular rate and rhythm without murmurs clicks gallops or rubs. Abdomen showed a mild gaseous distention with hypoactive bowel sounds and mild left lower quadrant tenderness to palpation. Extremities revealed no clubbing cyanosis or edema. Psychiatric exam showed the patient be alert and oriented x3 with no disorder of thought, mood or affect noted. Neurologic exam showed the patient to be grossly intact for bilateral sensory and motor function with grossly intact cranial nerves II through XII. Patient was observed ongoing and her blood pressure gradually improved with the Levophed infusion. Stop time: 23:49 Total face to patient critical care time: 24 minutes
[2018-12-17 01:26] LABS: ANION GAP 9 (5-19); BLOOD UREA NITROGEN 56 mg/dL (7-20); CALCIUM 8.6 mg/dL (8.4-10.2); CARBON DIOXIDE 21 mmol/L (22-30); CHLORIDE 109 mmol/L (98-107); GLUCOSE 118 mg/dL (75-110)
[2018-12-17] MEDS: RINGERS SOLUTION,LACTATED 1,000 ML IV PRN ×2 (01:40→20:00)
[2018-12-17 05:45] LABS: ABSOLUTE BASOPHILS # (AUTO) 0.1 10^3/uL (0.0-0.2); ABSOLUTE EOSINOPHILS # (AUTO) 0.3 10^3/uL (0.0-0.6); ABSOLUTE LYMPHOCYTES (AUTO) 1.3 10^3/uL (0.5-4.7); ABSOLUTE MONOCYTES (AUTO) 0.9 10^3/uL (0.1-1.4); ABSOLUTE NEUT (AUTO) 13.1 10^3/uL (1.7-8.2); BASOPHILS % (AUTO) 0.4 % (0-2); EOSINOPHILS % (AUTO) 1.7 % (0-6); HEMATOCRIT 38.8 % (36.0-47.0); HEMOGLOBIN 12.6 g/dL (12.0-15.5); LYMPHOCYTES % (AUTO) 8.3 % (13-45); MEAN CORPUSCULAR HEMOGLOBIN 30.6 pg (27.0-33.4); MEAN CORPUSCULAR HGB CONC 32.6 g/dL (32.0-36.0); MEAN CORPUSCULAR VOLUME 94 fl (80-97); MONOCYTES % (AUTO) 5.7 % (3-13); PLATELET COUNT 224 10^3/uL (150-450); RED BLOOD COUNT 4.13 10^6/uL (3.72-5.28); SEGMENTED NEUTROPHILS % (AUTO) 83.9 % (42-78); TOTAL CELLS COUNTED % (AUTO) 100 %; WHITE BLOOD COUNT 15.7 10^3/uL (4.0-10.5)
[2018-12-17 05:56] LABS: ALBUMIN 2.7 g/dL (3.5-5.0); ALKALINE PHOSPHATASE 57 U/L (38-126); ANION GAP 7 (5-19); ASPARTATE AMINO TRANSFERASE 17 U/L (14-36); BILIRUBIN,DIRECT 0.4 mg/dL (0.0-0.4); BILIRUBIN,TOTAL 0.7 mg/dL (0.2-1.3); BLOOD UREA NITROGEN 54 mg/dL (7-20); CALCIUM 8.3 mg/dL (8.4-10.2); CARBON DIOXIDE 23 mmol/L (22-30); CHLORIDE 109 mmol/L (98-107); GLUCOSE 102 mg/dL (75-110); POTASSIUM 3.7 mmol/L (3.6-5.0); TOTAL PROTEIN 5.7 g/dL (6.3-8.2)
[2018-12-17 06:04] LABS: INTERNATIONAL RATION (INR) 1.55; PROTHROMBIN TIME 18.7 SEC (11.4-15.4)
[2018-12-17] MEDS: HEPARIN SOD (PORCINE) 5,000 UNIT/ML 1 ML VIAL SUBCUT SCH ×3 (06:54→23:14)
[2018-12-17] MEDS: VANCOMYCIN HCL INJ 500 MG VIAL PO SCH ×4 (06:54→23:16)
[2018-12-17] MEDS: METRONIDAZOLE 500 MG/NS RTU 500 MG/100 ML RTUPB IV SCH ×4 (06:55→23:14)
[2018-12-17] MEDS ORDERED: RINGERS SOLUTION,LACTATED 1,000 ML IV ONE (07:45)
[2018-12-17] MEDS: ACETAMINOPHEN 325 MG TABLET PO PRN (09:08)
--- NOTE | 2018-12-17 10:19 | PDOC PROGRESS REPORT ---
Subjective Progress Note for:: 12/17/18 Subjective:: Pt is a 78 yo woman with CKD, HTN, afib who was admitted yesterday to the hospitalist service for hypotension, HEAVEN, diarrhea, and possible c.diff. She became progressively hypotensive and was transferred to the ICU last night and started on levophed. Today, her BP has improved and her levophed has been wean to off. She continues to have diarrhea and also c/o mild abdominal pain, headache, and lower back pain. Reason For Visit: SEPSIS FROM C. DIFFICILE Physical Exam Vital Signs: Temp Pulse Resp BP Pulse Ox 97.2 F 87 19 108/71 91 L 12/17/18 08:00 12/17/18 10:06 12/17/18 08:00 12/17/18 08:00 12/17/18 08:00 Intake & Output 12/16/18 12/17/18 12/18/18 06:59 06:59 06:59 Intake Total 2251 Output Total 0 Balance 2251 0 Weight 91.3 kg General appearance: PRESENT: no acute distress, well-developed, well-nourished Head exam: PRESENT: atraumatic, normocephalic Respiratory exam: PRESENT: clear to auscultation christin, unlabored Cardiovascular exam: PRESENT: irregular rhythm GI/Abdominal exam: PRESENT: soft Additonal comments: soft, NTND, no rebound, no guarding Additional comments: Back: TTP over cocyx Neurological exam: PRESENT: alert, awake Results Laboratory Results: 12/17/18 05:30 12/17/18 05:30 12/16/18 12/16/18 12/16/18 16:40 16:40 17:05 WBC 23.5 H RBC 4.61 Hgb 14.4 Hct 42.8 MCV 93 MCH 31.3 MCHC 33.6 RDW 12.8 Plt Count 350 Seg Neutrophils % Not Reportable Sodium Cancelled 137.6 Potassium Cancelled 4.6 Chloride Cancelled 104 Carbon Dioxide Cancelled 21 L Anion Gap Cancelled 13 BUN Cancelled 67 H Creatinine Cancelled 3.58 H Est GFR ( Amer) Cancelled 15 L Est GFR (Non-Af Amer) Cancelled Glucose Cancelled 100 Lactic Acid Calcium Cancelled 9.2 Magnesium Total Bilirubin Cancelled 0.4 AST Cancelled 17 Alkaline Phosphatase Cancelled 69 Total Protein Cancelled 5.8 L Albumin Cancelled 3.0 L Stl C.difficile Tox PCR 12/16/18 12/16/18 12/17/18 19:17 19:40 00:52 WBC RBC Hgb Hct MCV MCH MCHC RDW Plt Count Seg Neutrophils % Sodium 138.8 Potassium 4.0 Chloride 109 H Carbon Dioxide 21 L Anion Gap 9 BUN 56 H Creatinine 2.67 H Est GFR ( Amer) 21 L Est GFR (Non-Af Amer) Glucose 118 H Lactic Acid 1.5 Calcium 8.6 Magnesium 1.4 L Total Bilirubin AST Alkaline Phosphatase Total Protein Albumin Stl C.difficile Tox PCR POSITIVE 12/17/18 12/17/18 12/17/18 05:30 05:30 05:30 WBC 15.7 H RBC 4.13 Hgb 12.6 Hct 38.8 MCV 94 MCH 30.6 MCHC 32.6 RDW 13.0 Plt Count 224 Seg Neutrophils % 83.9 H Sodium 139.4 Potassium 3.7 Chloride 109 H Carbon Dioxide 23 Anion Gap 7 BUN 54 H Creatinine 2.50 H Est GFR ( Amer) 23 L Est GFR (Non-Af Amer) Glucose 102 Lactic Acid 0.9 Calcium 8.3 L Magnesium 1.4 L Total Bilirubin 0.7 AST 17 Alkaline Phosphatase 57 Total Protein 5.7 L Albumin 2.7 L Stl C.difficile Tox PCR Impressions: Abdomen/Pelvis CT 12/16/18 17:47 IMPRESSION: Generalize diverticulosis. There is also generalized thickening of the bowel wall with mild pericolonic fat stranding diffusely through the colon. Suggests colitis superimposed on diverticulosis. Assessment & Plan - Diagnosis (1) Severe sepsis with septic shock Is this a current diagnosis for this admission?: Yes (2) Acute renal failure superimposed on stage 3 chronic kidney disease Qualifiers: Acute renal failure type: with acute tubular necrosis Qualified Code(s): N17.0 - Acute kidney failure with tubular necrosis; N18.3 - Chronic kidney disease, stage 3 (moderate) Is this a current diagnosis for this admission?: Yes (3) C. difficile colitis Is this a current diagnosis for this admission?: Yes (4) Atrial fibrillation Qualifiers: Atrial fibrillation type: chronic Qualified Code(s): I48.2 - Chronic atrial fibrillation Is this a current diagnosis for this admission?: Yes - Plan Summary Plan Summary: Mrs. Inman is a 78yo woman with septic shock, probable c.diff colitis, HEAVEN, CKD, chronic afib. Plan: 1. Respiratory: stable on 2 liters NC 2. CV: hypotension due to septic shock, resolving. Pt is off levophed. SBP in the swapnil 90s. Will give an additional 2 liters LR. Chronic afib, rate controlled. Not on home anticoagulation 3. ID: septic shock, probable c.diff colitis. Cultures pending. C.diff study pen ding. Continue IV flagyl and oral vanc. WBC decreasing 4. Renal: HEAVEN, CKD. HEAVEN due to volume depletion from diarrhea. Cr is decreasing. Continue IVF. Renally dose meds. Insert frank. 5. Nutrition: clear liquid diet 6. Prophylaxis: sq heparin Critical care time= 50 min, excluding procedures
[2018-12-17] MEDS ORDERED: RINGERS SOLUTION,LACTATED 2,000 ML IV ONE (11:00)
[2018-12-18] MEDS: ACETAMINOPHEN 325 MG TABLET PO PRN
[2018-12-18] MEDS: VANCOMYCIN HCL INJ 500 MG VIAL PO SCH ×3 (06:43→18:01)
[2018-12-18] MEDS: METRONIDAZOLE 500 MG/NS RTU 500 MG/100 ML RTUPB IV SCH (06:43)
[2018-12-18] MEDS: HEPARIN SOD (PORCINE) 5,000 UNIT/ML 1 ML VIAL SUBCUT SCH ×3 (06:44→21:13)
[2018-12-18 08:24] LABS: ABSOLUTE BASOPHILS # (AUTO) 0.1 10^3/uL (0.0-0.2); ABSOLUTE EOSINOPHILS # (AUTO) 0.3 10^3/uL (0.0-0.6); ABSOLUTE MONOCYTES (AUTO) 0.6 10^3/uL (0.1-1.4); ABSOLUTE NEUT (AUTO) 6.4 10^3/uL (1.7-8.2); BASOPHILS % (AUTO) 0.7 % (0-2); EOSINOPHILS % (AUTO) 3.1 % (0-6); HEMATOCRIT 39.4 % (36.0-47.0); HEMOGLOBIN 13.2 g/dL (12.0-15.5); LYMPHOCYTES % (AUTO) 12.3 % (13-45); MEAN CORPUSCULAR HEMOGLOBIN 31.2 pg (27.0-33.4); MEAN CORPUSCULAR HGB CONC 33.4 g/dL (32.0-36.0); MEAN CORPUSCULAR VOLUME 94 fl (80-97); MONOCYTES % (AUTO) 6.9 % (3-13); PLATELET COUNT 217 10^3/uL (150-450); RED BLOOD COUNT 4.21 10^6/uL (3.72-5.28); RED CELL DISTRIBUTION WIDTH 12.9 % (11.5-14.0); TOTAL CELLS COUNTED % (AUTO) 100 %; WHITE BLOOD COUNT 8.2 10^3/uL (4.0-10.5)
[2018-12-18 08:53] LABS: ANION GAP 10 (5-19); BLOOD UREA NITROGEN 29 mg/dL (7-20); CALCIUM 8.2 mg/dL (8.4-10.2); CARBON DIOXIDE 24 mmol/L (22-30); CHLORIDE 106 mmol/L (98-107); GLUCOSE 102 mg/dL (75-110); POTASSIUM 3.8 mmol/L (3.6-5.0)
--- NOTE | 2018-12-18 09:33 | PDOC PROGRESS REPORT ---
Subjective Progress Note for:: 12/18/18 Subjective:: ICU progress Note. Pt is off levophed. Still c/o feeling poorly. No acute overnight events. Reason For Visit: SEPSIS FROM C. DIFFICILE Physical Exam Vital Signs: Temp Pulse Resp BP Pulse Ox 98.2 F 118 H 19 154/94 H 99 12/18/18 08:00 12/18/18 08:00 12/18/18 08:00 12/18/18 08:00 12/18/18 08:00 Intake & Output 12/17/18 12/18/18 12/19/18 06:59 06:59 06:59 Intake Total 2257 3400 Output Total 1905 250 Balance 2257 1495 -250 Weight 91.3 kg 95.4 kg General appearance: PRESENT: no acute distress, well-developed, well-nourished Head exam: PRESENT: atraumatic, normocephalic Respiratory exam: PRESENT: clear to auscultation christin, unlabored Cardiovascular exam: PRESENT: irregular rhythm GI/Abdominal exam: PRESENT: soft Additonal comments: non-tender, non-distended, no rebound, no guarding. Gentrourinary exam: PRESENT: indwelling catheter Additional comments: no edema Results Laboratory Results: 12/18/18 08:08 12/18/18 08:08 12/17/18 12/17/18 12/18/18 13:49 18:20 08:08 WBC RBC Hgb Hct MCV MCH MCHC RDW Plt Count Seg Neutrophils % Sodium 139.9 Potassium 3.8 Chloride 106 Carbon Dioxide 24 Anion Gap 10 BUN 29 H Creatinine 1.36 H Est GFR ( Amer) 46 L Glucose 102 Lactic Acid 0.9 1.9 Calcium 8.2 L 12/18/18 08:08 WBC 8.2 RBC 4.21 Hgb 13.2 Hct 39.4 MCV 94 MCH 31.2 MCHC 33.4 RDW 12.9 Plt Count 217 Seg Neutrophils % 77.0 Sodium Potassium Chloride Carbon Dioxide Anion Gap BUN Creatinine Est GFR ( Amer) Glucose Lactic Acid Calcium Impressions: Abdomen/Pelvis CT 12/16/18 17:47 IMPRESSION: Generalize diverticulosis. There is also generalized thickening of the bowel wall with mild pericolonic fat stranding diffusely through the colon. Suggests colitis superimposed on diverticulosis. Assessment & Plan - Diagnosis (1) Severe sepsis with septic shock Is this a current diagnosis for this admission?: Yes (2) Acute renal failure superimposed on stage 3 chronic kidney disease Qualifiers: Acute renal failure type: with acute tubular necrosis Qualified Code(s): N17.0 - Acute kidney failure with tubular necrosis; N18.3 - Chronic kidney disease, stage 3 (moderate) Is this a current diagnosis for this admission?: Yes (3) C. difficile colitis Is this a current diagnosis for this admission?: Yes (4) Atrial fibrillation Qualifiers: Atrial fibrillation type: chronic Qualified Code(s): I48.2 - Chronic atrial fibrillation Is this a current diagnosis for this admission?: Yes - Plan Summary Plan Summary: Mrs. Inman is a 78yo woman with severe sepsis, c.diff colitis, HEAVEN, CKD, chronic afib. Plan: 1. Respiratory: stable on 2 liters NC. Wean to room air as tolerated. 2. CV: hypotension due to septic shock, resolved. Pt is off levophed. SBP in the 110s. Continue IVF. Chronic afib, rate controlled. Not on home anticoagulation 3. ID: severe sepsis,c.diff colitis. Leukocytosis, resolving. D/c IV flagy and continue oral vanc. One blood culture is postive for GPC, probably a contaminant. 4. Renal: HEAVEN, CKD. HEAVEN due to volume depletion from diarrhea is resolving. Cr has decreased to 1.56. Continue IVF. Continue frank. 5. GI: c.diff colitis. Pt continue to have diarrhea. Continue oral vanc. 6. Nutrition: clear liquid diet 7. Prophylaxis: sq heparin 8. Disposition: stable for transfer out of the ICU.
[2018-12-18] MEDS ORDERED: ONDANSETRON HCL INJ/PF 4 MG/2 ML SDV ONE (11:24)
[2018-12-18] MEDS ORDERED: ONDANSETRON HCL INJ/PF 4 MG/2 ML SDV IV PRN (11:29)
[2018-12-19] MEDS: VANCOMYCIN HCL INJ 500 MG VIAL PO SCH ×5 (00:31→23:28)
[2018-12-19] MEDS: HEPARIN SOD (PORCINE) 5,000 UNIT/ML 1 ML VIAL SUBCUT SCH (05:57)
[2018-12-19 09:27] LABS: ABSOLUTE BASOPHILS # (AUTO) 0.1 10^3/uL (0.0-0.2); ABSOLUTE EOSINOPHILS # (AUTO) 0.2 10^3/uL (0.0-0.6); ABSOLUTE LYMPHOCYTES (AUTO) 1.4 10^3/uL (0.5-4.7); ABSOLUTE MONOCYTES (AUTO) 0.7 10^3/uL (0.1-1.4); ABSOLUTE NEUT (AUTO) 8.3 10^3/uL (1.7-8.2); BASOPHILS % (AUTO) 0.6 % (0-2); EOSINOPHILS % (AUTO) 2.2 % (0-6); HEMATOCRIT 44.1 % (36.0-47.0); HEMOGLOBIN 14.7 g/dL (12.0-15.5); LYMPHOCYTES % (AUTO) 12.7 % (13-45); MEAN CORPUSCULAR HEMOGLOBIN 30.9 pg (27.0-33.4); MEAN CORPUSCULAR HGB CONC 33.3 g/dL (32.0-36.0); MEAN CORPUSCULAR VOLUME 93 fl (80-97); MONOCYTES % (AUTO) 6.6 % (3-13); PLATELET COUNT 250 10^3/uL (150-450); RED BLOOD COUNT 4.75 10^6/uL (3.72-5.28); RED CELL DISTRIBUTION WIDTH 13.1 % (11.5-14.0); SEGMENTED NEUTROPHILS % (AUTO) 77.9 % (42-78); TOTAL CELLS COUNTED % (AUTO) 100 %; WHITE BLOOD COUNT 10.7 10^3/uL (4.0-10.5)
--- NOTE | 2018-12-19 10:01 | PDOC PROGRESS REPORT ---
Subjective Progress Note for:: 12/19/18 Subjective:: ICU progress Note. Pt remains in the ICU. Awaiting transfer to a [facility] bed. Continues to have diarrhea. Reason For Visit: SEPSIS FROM C. DIFFICILE Physical Exam Vital Signs: Temp Pulse Resp BP Pulse Ox 97.8 F 57 L 18 139/96 H 97 12/18/18 19:44 12/18/18 16:00 12/18/18 16:00 12/18/18 16:13 12/18/18 16:00 Intake & Output 12/18/18 12/19/18 12/20/18 06:59 06:59 06:59 Intake Total 4400 Output Total 1905 660 Balance 2495 -660 Weight 95.4 kg 94.8 kg General appearance: PRESENT: no acute distress, well-developed, well-nourished Head exam: PRESENT: atraumatic, normocephalic Respiratory exam: PRESENT: clear to auscultation christin, unlabored Cardiovascular exam: PRESENT: irregular rhythm GI/Abdominal exam: PRESENT: soft Extremities exam: PRESENT: other - no edema Results Laboratory Results: 12/19/18 09:13 12/19/18 09:13 WBC 10.7 H RBC 4.75 Hgb 14.7 Hct 44.1 MCV 93 MCH 30.9 MCHC 33.3 RDW 13.1 Plt Count 250 Seg Neutrophils % 77.9 12/16/18 19:40 Stool - Stool - Final 12/16/18 19:40 Stool - Stool Stool Culture - Final NO SALMONELLA, SHIGELLA, CAMPYLOBACTER, OR E.COLI 0157 RECOVERED. NEGATIVE FOR SHIGA TOXINS 1&2. Impressions: Abdomen/Pelvis CT 12/16/18 17:47 IMPRESSION: Generalize diverticulosis. There is also generalized thickening of the bowel wall with mild pericolonic fat stranding diffusely through the colon. Suggests colitis superimposed on diverticulosis. Assessment & Plan - Diagnosis (1) Severe sepsis with septic shock Is this a current diagnosis for this admission?: Yes (2) Acute renal failure superimposed on stage 3 chronic kidney disease Qualifiers: Acute renal failure type: with acute tubular necrosis Qualified Code(s): N17.0 - Acute kidney failure with tubular necrosis; N18.3 - Chronic kidney disea se, stage 3 (moderate) Is this a current diagnosis for this admission?: Yes (3) C. difficile colitis Is this a current diagnosis for this admission?: Yes (4) Atrial fibrillation Qualifiers: Atrial fibrillation type: chronic Qualified Code(s): I48.2 - Chronic atrial fibrillation Is this a current diagnosis for this admission?: Yes - Plan Summary Plan Summary: Mrs. Inman is a 78yo woman with severe sepsis, c.diff colitis, HEAVEN, CKD, chronic afib. Plan: 1. Respiratory: stable on room air.. 2. CV: hypotension due to septic shock, resolved. BP acceptable. Off IVF. Continue to hold home BP meds.. Chronic afib, rate controlled. Upon further review of records pt is on xarelto 20 mg daily. Willr resume. 3. ID: severe sepsis,c.diff colitis. Continue oral vanc. 4. Renal: HEAVEN, CKD. HEAVEN due to volume depletion from diarrhea is resolving. BMP pending. Off IVF. 5. GI: c.diff colitis. Pt continue to have diarrhea. Continue oral vanc. 6. Nutrition: advance diet to regular cardiac diet 7. Prophylaxis: will d/c sq heparin and resume home xarelto 8. Disposition: awaiting transfer out of ICU.
[2018-12-19 10:06] LABS: ANION GAP 13 (5-19); BLOOD UREA NITROGEN 18 mg/dL (7-20); CALCIUM 8.4 mg/dL (8.4-10.2); CARBON DIOXIDE 22 mmol/L (22-30); CHLORIDE 106 mmol/L (98-107); GLUCOSE 89 mg/dL (75-110); POTASSIUM 3.8 mmol/L (3.6-5.0)
[2018-12-19] MEDS: RIVAROXABAN 10 MG TABLET PO SCH (11:29)
[2018-12-19] MEDS: MAGNESIUM SULFATE 1 GM/D5W 100 ML IV SCH ×2 (15:35→16:45)
[2018-12-19] MEDS ORDERED: RIVAROXABAN 10 MG TABLET PO SCH (17:00)
[2018-12-20] MEDS: VANCOMYCIN HCL INJ 500 MG VIAL PO SCH ×4 (05:11→23:03)
[2018-12-20 05:34] LABS: ANION GAP 7 (5-19); BLOOD UREA NITROGEN 18 mg/dL (7-20); CARBON DIOXIDE 27 mmol/L (22-30); CHLORIDE 106 mmol/L (98-107); GLUCOSE 91 mg/dL (75-110)
[2018-12-20 07:13] LABS: ABSOLUTE BASOPHILS # (AUTO) 0.1 10^3/uL (0.0-0.2); ABSOLUTE EOSINOPHILS # (AUTO) 0.3 10^3/uL (0.0-0.6); ABSOLUTE LYMPHOCYTES (AUTO) 1.5 10^3/uL (0.5-4.7); ABSOLUTE MONOCYTES (AUTO) 0.8 10^3/uL (0.1-1.4); ABSOLUTE NEUT (AUTO) 6.3 10^3/uL (1.7-8.2); BASOPHILS % (AUTO) 0.9 % (0-2); EOSINOPHILS % (AUTO) 2.9 % (0-6); HEMATOCRIT 39.3 % (36.0-47.0); HEMOGLOBIN 13.2 g/dL (12.0-15.5); LYMPHOCYTES % (AUTO) 16.6 % (13-45); MEAN CORPUSCULAR HEMOGLOBIN 31.1 pg (27.0-33.4); MEAN CORPUSCULAR HGB CONC 33.6 g/dL (32.0-36.0); MEAN CORPUSCULAR VOLUME 93 fl (80-97); MONOCYTES % (AUTO) 8.9 % (3-13); PLATELET COUNT 234 10^3/uL (150-450); RED BLOOD COUNT 4.25 10^6/uL (3.72-5.28); RED CELL DISTRIBUTION WIDTH 12.9 % (11.5-14.0); SEGMENTED NEUTROPHILS % (AUTO) 70.7 % (42-78); TOTAL CELLS COUNTED % (AUTO) 100 %; WHITE BLOOD COUNT 8.9 10^3/uL (4.0-10.5)
[2018-12-20] MEDS: RIVAROXABAN 10 MG TABLET PO SCH (09:24)
[2018-12-20] MEDS ORDERED: (PENDING PHARMACY ID) (Lisinopril [Zestril] 10 MG) PO SCH (10:00)
[2018-12-20] MEDS ORDERED: (PENDING PHARMACY ID) (Atenolol [Tenormin] 50 MG) PO SCH (10:32)
[2018-12-20] MEDS: GABAPENTIN 100 MG CAPSULE PO SCH ×2 (13:54→22:45)
--- NOTE | 2018-12-20 14:54 | PDOC PROGRESS REPORT ---
Subjective Progress Note for:: 12/20/18 Subjective:: LAUREN ANG is a 78 year old female with a past medical history of chronic kidney disease, atrial fibrillation, hypertension and hyperlipidemia. Her has been struggling with C. difficile for weeks now. 2 weeks ago the patient had diarrhea from Friday through Friday and then was better. From Friday evening through today she has been having profuse watery diarrhea with nausea but no vomiting. Her appetite is been decreased. She is not drinking as much fluid as she usually does. She presents today with abdominal pain and acute on chronic kidney injury as well as hypotension meeting the criteria for sepsis. She was given IV fluids in the emergency department. Lactic acid was ordered but not collected yet. She was referred to the hospitalist service for admission. 12/18/2017. No acute events overnight. Complaining of persistent diarrhea however reporting that diarrhea consistency is getting thicker. Still has not had a formed stool. Denies any fever, chills, nausea, vomiting, constipation or any urinary symptoms. Reason For Visit: SEPSIS FROM C. DIFFICILE Physical Exam Vital Signs: Temp Pulse Resp BP Pulse Ox 98.5 F 77 16 148/86 H 97 12/20/18 08:42 12/20/18 08:42 12/20/18 08:42 12/20/18 08:42 12/20/18 08:42 Intake & Output 12/19/18 12/20/18 12/21/18 06:59 06:59 06:59 Intake Total 1056 Output Total 660 Balance -660 1056 Weight 94.8 kg 93.4 kg General appearance: PRESENT: obese Respiratory exam: PRESENT: clear to auscultation christin. ABSENT: rales, rhonchi, wheezes Cardiovascular exam: PRESENT: RRR. ABSENT: diastolic murmur, rubs, systolic murmur GI/Abdominal exam: PRESENT: normal bowel sounds, soft. ABSENT: distended, guarding, mass, organolmegaly, rebound, tenderness Neurological exam: PRESENT: alert, awake, oriented to person, oriented to place, oriented to time, oriented to situation, CN II-XII grossly intact. ABSENT: motor sensory deficit Results Laboratory Results: 12/20/18 06:57 12/20/18 04:27 12/20/18 12/20/18 12/20/18 04:27 04:27 04:37 WBC Cancelled RBC Cancelled Hgb Cancelled Hct Cancelled MCV Cancelled MCH Cancelled MCHC Cancelled RDW Cancelled Plt Count Cancelled Seg Neutrophils % Cancelled Sodium 140.1 Potassium 4.0 Chloride 106 Carbon Dioxide 27 Anion Gap 7 BUN 18 Creatinine 1.03 Est GFR ( Amer) > 60 Glucose 91 Calcium 8.0 L Magnesium 1.6 12/20/18 06:57 WBC 8.9 RBC 4.25 Hgb 13.2 Hct 39.3 MCV 93 MCH 31.1 MCHC 33.6 RDW 12.9 Plt Count 234 Seg Neutrophils % 70.7 Sodium Potassium Chloride Carbon Dioxide Anion Gap BUN Creatinine Est GFR ( Amer) Glucose Calcium Magnesium Impressions: Abdomen/Pelvis CT 12/16/18 17:47 IMPRESSION: Generalize diverticulosis. There is also generalized thickening of the bowel wall with mild pericolonic fat stranding diffusely through the colon. Suggests colitis superimposed on diverticulosis. Assessment and Plan - Diagnosis (1) C. difficile colitis Is this a current diagnosis for this admission?: Yes Plan: Mild improvement. Afebrile. WBC WNL. Day for p.o. vancomycin. Continue p.o. vancomycin, monitor volume status, monitor electrolytes replace as needed. (2) Acute renal failure superimposed on stage 3 chronic kidney disease Qualifiers: Acute renal failure type: with acute tubular necrosis Qualified Code(s): N17.0 - Acute kidney failure with tubular necrosis; N18.3 - Chronic kidney disease, stage 3 (moderate) Is this a current diagnosis for this admission?: Yes Plan: Prerenal. Most likely caused by septic shock. Renal function WNL. Electrolytes WNL. Monitor volume status and electrolytes. BMP tomorrow. Avoid nephrotoxic meds. (3) Atrial fibrillation Qualifiers: Atrial fibrillation type: chronic Qualified Code(s): I48.2 - Chronic atrial fibrillation Is this a current diagnosis for this admission?: Yes Plan: Rate controlled. Anticoagulated. Continue telemetry, NOACs, beta-blockers. (4) Severe sepsis with septic shock Is this a current diagnosis for this admission?: Yes Plan: Due to severe C. difficile colitis. Resolved. Vitals WNL.
[2018-12-21 05:06] LABS: ALBUMIN 2.3 g/dL (3.5-5.0); ALKALINE PHOSPHATASE 63 U/L (38-126); ANION GAP 5 (5-19); ASPARTATE AMINO TRANSFERASE 65 U/L (14-36); BILIRUBIN,DIRECT 0.1 mg/dL (0.0-0.4); BILIRUBIN,TOTAL 0.2 mg/dL (0.2-1.3); BLOOD UREA NITROGEN 14 mg/dL (7-20); CALCIUM 7.6 mg/dL (8.4-10.2); CARBON DIOXIDE 27 mmol/L (22-30); CHLORIDE 109 mmol/L (98-107); GLUCOSE 100 mg/dL (75-110); POTASSIUM 3.6 mmol/L (3.6-5.0); TOTAL PROTEIN 4.9 g/dL (6.3-8.2)
[2018-12-21] MEDS: VANCOMYCIN HCL INJ 500 MG VIAL PO SCH ×4 (05:37→23:27)
[2018-12-21] MEDS: GABAPENTIN 100 MG CAPSULE PO SCH ×3 (05:37→21:30)
[2018-12-21 07:08] LABS: ABSOLUTE BASOPHILS # (AUTO) 0.1 10^3/uL (0.0-0.2); ABSOLUTE EOSINOPHILS # (AUTO) 0.3 10^3/uL (0.0-0.6); ABSOLUTE LYMPHOCYTES (AUTO) 1.2 10^3/uL (0.5-4.7); ABSOLUTE MONOCYTES (AUTO) 0.7 10^3/uL (0.1-1.4); ABSOLUTE NEUT (AUTO) 4.8 10^3/uL (1.7-8.2); BASOPHILS % (AUTO) 0.9 % (0-2); EOSINOPHILS % (AUTO) 3.6 % (0-6); HEMATOCRIT 37.1 % (36.0-47.0); HEMOGLOBIN 12.3 g/dL (12.0-15.5); LYMPHOCYTES % (AUTO) 16.8 % (13-45); MEAN CORPUSCULAR HGB CONC 33.2 g/dL (32.0-36.0); MEAN CORPUSCULAR VOLUME 94 fl (80-97); MONOCYTES % (AUTO) 10.1 % (3-13); PLATELET COUNT 211 10^3/uL (150-450); RED BLOOD COUNT 3.97 10^6/uL (3.72-5.28); RED CELL DISTRIBUTION WIDTH 13.1 % (11.5-14.0); SEGMENTED NEUTROPHILS % (AUTO) 68.6 % (42-78); TOTAL CELLS COUNTED % (AUTO) 100 %; WHITE BLOOD COUNT 6.9 10^3/uL (4.0-10.5)
[2018-12-21] MEDS: ATENOLOL 50 MG TABLET PO SCH (09:43)
[2018-12-21] MEDS: RIVAROXABAN 10 MG TABLET PO SCH (09:44)
[2018-12-21] MEDS: ASPIRIN 81 MG TABLET, ENT COATED PO SCH (09:44)
[2018-12-21] MEDS: LISINOPRIL 10 MG TABLET PO SCH (09:44)
[2018-12-21] MEDS ORDERED: (PENDING PHARMACY ID) (Atenolol [Tenormin] 50 MG) PO SCH (10:00)
[2018-12-21] MEDS: SIMVASTATIN 10 MG TABLET PO SCH ×2 (11:55→21:31)
--- NOTE | 2018-12-21 16:25 | PDOC PROGRESS REPORT ---
Subjective Progress Note for:: 12/21/18 Subjective:: LAUREN ANG is a 78 year old female with a past medical history of chronic kidney disease, atrial fibrillation, hypertension and hyperlipidemia. Her has been struggling with C. difficile for weeks now. 2 weeks ago the patient had diarrhea from Friday through Friday and then was better. From Friday evening through today she has been having profuse watery diarrhea with nausea but no vomiting. Her appetite is been decreased. She is not drinking as much fluid as she usually does. She presents today with abdominal pain and acute on chronic kidney injury as well as hypotension meeting the criteria for sepsis. She was given IV fluids in the emergency department. Lactic acid was ordered but not collected yet. She was referred to the hospitalist service for admission. 12/20/2017. No acute events overnight. Complaining of persistent diarrhea however reporting that diarrhea consistency is getting thicker. Still has not had a formed stool. Denies any fever, chills, nausea, vomiting, constipation or any urinary symptoms. 12/21/2018. No acute events overnight. Still complaining of persistent diarrhea, no formed stool. Denies any fever, chills, nausea, vomiting or any urinary symptoms. P.o. tolerant, ambulatory. Reason For Visit: SEPSIS FROM C. DIFFICILE Physical Exam Vital Signs: Temp Pulse Resp BP Pulse Ox 98.9 F 96 16 135/85 H 98 12/21/18 12:01 12/21/18 12:01 12/21/18 12:01 12/21/18 12:01 12/21/18 12:01 Intake & Output 12/20/18 12/21/18 12/22/18 06:59 06:59 06:59 Intake Total 1056 814 356 Balance 1056 814 356 Weight 93.4 kg General appearance: PRESENT: obese Respiratory exam: PRESENT: clear to auscultation christin. ABSENT: rales, rhonchi, wheezes Cardiovascular exam: PRESENT: RRR. ABSENT: diastolic murmur, rubs, systolic murmur GI/Abdominal exam: PRESENT: normal bowel sounds, soft. ABSENT: distended, guarding, mass, organolmegaly, rebound, tenderness Neurological exam: PRESENT: alert, awake, oriented to person, oriented to place, oriented to time, oriented to situation, CN II-XII grossly intact. ABSENT: motor sensory deficit Skin exam: PRESENT: dry, intact, warm. ABSENT: cyanosis, rash Results Laboratory Results: 12/21/18 06:50 12/21/18 04:12 12/21/18 12/21/18 12/21/18 04:12 04:12 06:50 WBC Cancelled 6.9 RBC Cancelled 3.97 Hgb Cancelled 12.3 Hct Cancelled 37.1 MCV Cancelled 94 MCH Cancelled 31.0 MCHC Cancelled 33.2 RDW Cancelled 13.1 Plt Count Cancelled 211 Seg Neutrophils % Cancelled 68.6 Sodium 141.0 Potassium 3.6 Chloride 109 H Carbon Dioxide 27 Anion Gap 5 BUN 14 Creatinine 0.95 Est GFR ( Amer) > 60 Glucose 100 Calcium 7.6 L Magnesium 1.3 L Total Bilirubin 0.2 AST 65 H Alkaline Phosphatase 63 Total Protein 4.9 L Albumin 2.3 L Impressions: Abdomen/Pelvis CT 12/16/18 17:47 IMPRESSION: Generalize diverticulosis. There is also generalized thickening of the bowel wall with mild pericolonic fat stranding diffusely through the colon. Suggests colitis superimposed on diverticulosis. Assessment and Plan - Diagnosis (1) C. difficile colitis Is this a current diagnosis for this admission?: Yes Plan: Mild improvement. Afebrile. WBC WNL. Day 5 p.o. vancomycin. Continue p.o. vancomycin, monitor volume status, monitor electrolytes replace as needed. (2) Acute renal failure superimposed on stage 3 chronic kidney disease Qualifiers: Acute renal failure type: with acute tubular necrosis Qualified Code(s): N17.0 - Acute kidney failure with tubular necrosis; N18.3 - Chronic kidney disease, stage 3 (moderate) Is this a current diagnosis for this admission?: Yes Plan: Resolved. Prerenal. Most likely caused by septic shock. Renal function WNL. Electrolytes WNL. Monitor volume status and electrolytes. BMP tomorrow. Avoid nephrotoxic meds. (3) Atrial fibrillation Qualifiers: Atrial fibrillation type: chronic Qualified Code(s): I48.2 - Chronic atrial fibrillation Is this a current diagnosis for this admission?: Yes Plan: Rate controlled. Anticoagulated. Continue telemetry, NOACs, beta-blockers. (4) Severe sepsis with septic shock Is this a current diagnosis for this admission?: Yes Plan: Due to severe C. difficile colitis. Resolved. Vitals WNL. (5) Hypomagnesemia Is this a current diagnosis for this admission?: Yes Plan: Likely due to GI losses. Replace. Magnesium level tomorrow. Continue daily supplemental magnesium.
[2018-12-21] MEDS ORDERED: MAGNESIUM SULFATE/D5W 1 GM/100 ML RTUPB IV ONE (17:00)
[2018-12-21] MEDS: MAGNESIUM OXIDE 400 MG TABLET PO SCH (17:34)
[2018-12-21] MEDS ORDERED: MAGNESIUM OXIDE 400 MG TABLET PO SCH (18:00)
[2018-12-22] MEDS: GABAPENTIN 100 MG CAPSULE PO SCH ×3 (06:04→21:39)
[2018-12-22] MEDS: VANCOMYCIN HCL INJ 500 MG VIAL PO SCH ×4 (06:04→23:20)
[2018-12-22] MEDS: LISINOPRIL 10 MG TABLET PO SCH (09:19)
[2018-12-22] MEDS: ASPIRIN 81 MG TABLET, ENT COATED PO SCH (09:19)
[2018-12-22] MEDS: ATENOLOL 50 MG TABLET PO SCH (09:19)
[2018-12-22] MEDS: MAGNESIUM OXIDE 400 MG TABLET PO SCH ×2 (09:20→18:27)
[2018-12-22] MEDS: RIVAROXABAN 10 MG TABLET PO SCH (09:20)
--- NOTE | 2018-12-22 13:58 | PDOC PROGRESS REPORT ---
Subjective Progress Note for:: 12/22/18 Subjective:: LAUREN ANG is a 78 year old female with a past medical history of chronic kidney disease, atrial fibrillation, hypertension and hyperlipidemia. Her has been struggling with C. difficile for weeks now. 2 weeks ago the patient had diarrhea from Friday through Friday and then was better. From Friday evening through today she has been having profuse watery diarrhea with nausea but no vomiting. Her appetite is been decreased. She is not drinking as much fluid as she usually does. She presents today with abdominal pain and acute on chronic kidney injury as well as hypotension meeting the criteria for sepsis. She was given IV fluids in the emergency department. Lactic acid was ordered but not collected yet. She was referred to the hospitalist service for admission. 12/20/2017. No acute events overnight. Complaining of persistent diarrhea however reporting that diarrhea consistency is getting thicker. Still has not had a formed stool. Denies any fever, chills, nausea, vomiting, constipation or any urinary symptoms. 12/21/2018. No acute events overnight. Still complaining of persistent diarrhea, no formed stool. Denies any fever, chills, nausea, vomiting or any urinary symptoms. P.o. tolerant, ambulatory. 12/22/2018. No acute events overnight. Alert, cooperative with dementia. Diarrhea is improving compared to yesterday, still watery. Denies any fever, chills, nausea, vomiting, diarrhea, constipation or any orders. P.o. tolerant and ambulating in her room. Reason For Visit: SEPSIS FROM C. DIFFICILE Physical Exam Vital Signs: Temp Pulse Resp BP Pulse Ox 98.2 F 92 17 145/97 H 94 12/21/18 23:33 12/21/18 23:33 12/21/18 23:33 12/21/18 23:33 12/21/18 23:33 Intake & Output 12/21/18 12/22/18 12/23/18 06:59 06:59 06:59 Intake Total 814 456 Balance 814 456 Weight 94 kg General appearance: PRESENT: no acute distress, obese, well-developed, well- nourished Head exam: PRESENT: atraumatic, normocephalic Eye exam: PRESENT: conjunctiva pink, EOMI, PERRLA. ABSENT: scleral icterus Ear exam: PRESENT: normal external ear exam Mouth exam: PRESENT: moist, tongue midline Neck exam: ABSENT: carotid bruit, JVD, lymphadenopathy, thyromegaly Respiratory exam: PRESENT: clear to auscultation christin. ABSENT: rales, rhonchi, wheezes Cardiovascular exam: PRESENT: RRR. ABSENT: diastolic murmur, rubs, systolic murmur Pulses: PRESENT: normal dorsalis pedis pul Vascular exam: PRESENT: normal capillary refill GI/Abdominal exam: PRESENT: normal bowel sounds, soft. ABSENT: distended, guarding, mass, organolmegaly, rebound, tenderness Rectal exam: PRESENT: deferred Extremities exam: PRESENT: full ROM. ABSENT: calf tenderness, clubbing, pedal edema Neurological exam: PRESENT: alert, awake, oriented to person, oriented to place, oriented to time, oriented to situation, CN II-XII grossly intact. ABSENT: motor sensory deficit Psychiatric exam: PRESENT: appropriate affect, normal mood. ABSENT: homicidal ideation, suicidal ideation Skin exam: PRESENT: dry, intact, warm. ABSENT: cyanosis, rash Results Laboratory Results: 12/21/18 06:50 12/21/18 04:12 12/16/18 23:42 Blood Blood Culture - Final NO GROWTH IN 5 DAYS Impressions: Abdomen/Pelvis CT 12/16/18 17:47 IMPRESSION: Generalize diverticulosis. There is also generalized thickening of the bowel wall with mild pericolonic fat stranding diffusely through the colon. Suggests colitis superimposed on diverticulosis. Assessment and Plan - Diagnosis (1) C. difficile colitis Is this a current diagnosis for this admission?: Yes Plan: Mild improvement. Afebrile. WBC WNL. Day 6 p.o. vancomycin. Continue p.o. vancomycin, monitor volume status, monitor electrolytes replace as needed. (2) Acute renal failure superimposed on stage 3 chronic kidney disease Qualifiers: Acute renal failure type: with acute tubular necrosis Qualified Code(s): N17.0 - Acute kidney failure with tubular necrosis; N18.3 - Chronic kidney disease, stage 3 (moderate) Is this a current diagnosis for this admission?: Yes Plan: Resolved. Prerenal. Most likely caused by septic shock. Renal function WNL. Electrolytes WNL. Monitor volume status and electrolytes. BMP tomorrow. Avoid nephrotoxic meds. (3) Atrial fibrillation Qualifiers: Atrial fibrillation type: chronic Qualified Code(s): I48.2 - Chronic atrial fibrillation Is this a current diagnosis for this admission?: Yes Plan: Rate controlled. Anticoagulated. Continue telemetry, NOACs, beta-blockers. (4) Severe sepsis with septic shock Is this a current diagnosis for this admission?: Yes Plan: Due to severe C. difficile colitis. Resolved. Vitals WNL. (5) Hypomagnesemia Is this a current diagnosis for this admission?: Yes Plan: Likely due to GI losses. Replace. Magnesium level tomorrow. Continue daily supplemental magnesium.
[2018-12-22 15:48] LABS: ANION GAP 7 (5-19); BLOOD UREA NITROGEN 18 mg/dL (7-20); CALCIUM 7.9 mg/dL (8.4-10.2); CARBON DIOXIDE 31 mmol/L (22-30); CHLORIDE 104 mmol/L (98-107); GLUCOSE 111 mg/dL (75-110); POTASSIUM 4.3 mmol/L (3.6-5.0)
[2018-12-22] MEDS ORDERED: MAGNESIUM OXIDE 400 MG TABLET PO ONE (15:52)
[2018-12-22] MEDS: SIMVASTATIN 10 MG TABLET PO SCH (21:39)
[2018-12-23] MEDS: GABAPENTIN 100 MG CAPSULE PO SCH ×3 (05:29→21:49)
[2018-12-23] MEDS: VANCOMYCIN HCL INJ 500 MG VIAL PO SCH ×3 (05:29→18:11)
[2018-12-23 07:05] LABS: ANION GAP 5 (5-19); BLOOD UREA NITROGEN 21 mg/dL (7-20); CALCIUM 7.9 mg/dL (8.4-10.2); CARBON DIOXIDE 29 mmol/L (22-30); CHLORIDE 106 mmol/L (98-107); GLUCOSE 97 mg/dL (75-110); POTASSIUM 4.4 mmol/L (3.6-5.0)
--- NOTE | 2018-12-23 10:06 | PDOC PROGRESS REPORT ---
Subjective Progress Note for:: 12/23/18 Subjective:: LAUREN ANG is a 78 year old female with a past medical history of chronic kidney disease, atrial fibrillation, hypertension and hyperlipidemia. Her has been struggling with C. difficile for weeks now. 2 weeks ago the patient had diarrhea from Friday through Friday and then was better. From Friday evening through today she has been having profuse watery diarrhea with nausea but no vomiting. Her appetite is been decreased. She is not drinking as much fluid as she usually does. She presents today with abdominal pain and acute on chronic kidney injury as well as hypotension meeting the criteria for sepsis. She was given IV fluids in the emergency department. Lactic acid was ordered but not collected yet. She was referred to the hospitalist service for admission. 12/20/2017. No acute events overnight. Complaining of persistent diarrhea however reporting that diarrhea consistency is getting thicker. Still has not had a formed stool. Denies any fever, chills, nausea, vomiting, constipation or any urinary symptoms. 12/21/2018. No acute events overnight. Still complaining of persistent diarrhea, no formed stool. Denies any fever, chills, nausea, vomiting or any urinary symptoms. P.o. tolerant, ambulatory. 12/22/2018. No acute events overnight. Alert and oriented. Diarrhea is improving compared to yesterday, still watery. Denies any fever, chills, nausea, vomiting, diarrhea, constipation or any orders. P.o. tolerant and ambulating in her room. 12/23/2018. No acute events overnight. Alert oriented, very pleasant and cooperative with physical examination. Still complaining of loose stools however has noticed some formed stools as well, denies any fever, chills, nausea, vomiting, or any urinary symptoms. P.o. tolerant, ambulatory. Reason For Visit: SEPSIS FROM C. DIFFICILE Physical Exam Vital Signs: Temp Pulse Resp BP Pulse Ox 98.7 F 97 17 148/73 H 100 12/23/18 08:00 12/23/18 08:00 12/23/18 08:00 12/23/18 08:00 12/23/18 08:00 Intake & Output 12/22/18 12/23/18 12/24/18 06:59 06:59 06:59 Intake Total 456 818 Balance 456 818 Weight 94 kg 94.5 kg General appearance: PRESENT: obese Respiratory exam: PRESENT: clear to auscultation christin. ABSENT: rales, rhonchi, wheezes Cardiovascular exam: PRESENT: RRR. ABSENT: diastolic murmur, rubs, systolic murmur GI/Abdominal exam: PRESENT: normal bowel sounds, soft. ABSENT: distended, guarding, mass, organolmegaly, rebound, tenderness Neurological exam: PRESENT: alert, awake, oriented to person, oriented to place, oriented to time, oriented to situation, CN II-XII grossly intact. ABSENT: motor sensory deficit Results Laboratory Results: 12/21/18 06:50 12/23/18 06:30 12/22/18 12/23/18 14:39 06:30 Sodium 141.8 139.9 Potassium 4.3 4.4 Chloride 104 106 Carbon Dioxide 31 H 29 Anion Gap 7 5 BUN 18 21 H Creatinine 0.99 0.84 Est GFR ( Amer) > 60 > 60 Glucose 111 H 97 Calcium 7.9 L 7.9 L Magnesium 1.4 L 1.6 12/16/18 19:40 Stool - Stool Ova and Parasite Concentrate Exam - Final 12/16/18 19:40 Stool - Stool Ova and Parasites - Final 12/16/18 19:17 Blood Blood Culture - Final Staphylococcus Capitis Impressions: Abdomen/Pelvis CT 12/16/18 17:47 IMPRESSION: Generalize diverticulosis. There is also generalized thickening of the bowel wall with mild pericolonic fat stranding diffusely through the colon. Suggests colitis superimposed on diverticulosis. Assessment and Plan - Diagnosis (1) C. difficile colitis Is this a current diagnosis for this admission?: Yes Plan: Mild improvement. Afebrile. WBC WNL. Day7 p.o. vancomycin. Continue p.o. vancomycin, monitor volume status, monitor electrolytes replace as needed. Possible discharge home tomorrow. (2) Acute renal failure superimposed on stage 3 chronic kidney disease Qualifiers: Acute renal failure type: with acute tubular necrosis Qualified Code(s): N17.0 - Acute kidney failure with tubular necrosis; N18.3 - Chronic kidney disease, stage 3 (moderate) Is this a current diagnosis for this admission?: Yes Plan: Resolved. Prerenal. Most likely caused by septic shock. Renal function WNL. Electrolytes WNL. Monitor volume status and electrolytes. BMP tomorrow. Avoid nephrotoxic meds. (3) Atrial fibrillation Qualifiers: Atrial fibrillation type: chronic Qualified Code(s): I48.2 - Chronic atrial fibrillation Is this a current diagnosis for this admission?: Yes Plan: Rate controlled. Anticoagulated. Continue telemetry, NOACs, beta-blockers. (4) Severe sepsis with septic shock Is this a current diagnosis for this admission?: Yes Plan: Due to severe C. difficile colitis. Resolved. Vitals WNL. (5) Hypomagnesemia Is this a current diagnosis for this admission?: Yes Plan: Resolved. Likely due to GI losses. Magnesium level tomorrow. Continue daily supplemental magnesium.
[2018-12-23] MEDS: ATENOLOL 50 MG TABLET PO SCH (12:19)
[2018-12-23] MEDS: LISINOPRIL 10 MG TABLET PO SCH (12:19)
[2018-12-23] MEDS: ASPIRIN 81 MG TABLET, ENT COATED PO SCH (12:19)
[2018-12-23] MEDS: MAGNESIUM OXIDE 400 MG TABLET PO SCH ×2 (12:19→18:12)
[2018-12-23] MEDS: RIVAROXABAN 10 MG TABLET PO SCH (12:20)
[2018-12-23] MEDS: LACTOBACILLUS ACIDOPHILUS 250 MG TAB PO SCH (18:11)
[2018-12-23] MEDS: SIMVASTATIN 10 MG TABLET PO SCH (21:48)
[2018-12-24] MEDS: VANCOMYCIN HCL INJ 500 MG VIAL PO SCH ×2 (01:38→05:53)
[2018-12-24] MEDS: GABAPENTIN 100 MG CAPSULE PO SCH (05:53)
[2018-12-24 07:27] LABS: ANION GAP 7 (5-19); BLOOD UREA NITROGEN 21 mg/dL (7-20); CALCIUM 8.4 mg/dL (8.4-10.2); CARBON DIOXIDE 28 mmol/L (22-30); CHLORIDE 103 mmol/L (98-107); GLUCOSE 104 mg/dL (75-110); POTASSIUM 4.6 mmol/L (3.6-5.0)
[2018-12-24] MEDS: LACTOBACILLUS ACIDOPHILUS 250 MG TAB PO SCH (10:15)
[2018-12-24] MEDS: RIVAROXABAN 10 MG TABLET PO SCH (10:15)
[2018-12-24] MEDS: ATENOLOL 50 MG TABLET PO SCH (10:15)
[2018-12-24] MEDS: ASPIRIN 81 MG TABLET, ENT COATED PO SCH (10:16)
[2018-12-24] MEDS: LISINOPRIL 10 MG TABLET PO SCH (10:16)
[2018-12-24] MEDS: MAGNESIUM OXIDE 400 MG TABLET PO SCH (10:16)
[2018-12-24 10:33] VITALS: BP 144/87
--- NOTE | 2018-12-25 17:33 | PDOC DISCHARGE SUMMARY ---
Impression - Admit/DC Date/PCP Admission Date/Primary Care Provider: 12/16/18 18:13 NABILA NUNEZ MD Discharge Date: 12/24/18 - Discharge Diagnosis (1) C. difficile colitis Is this a current diagnosis for this admission?: Yes (2) Acute renal failure superimposed on stage 3 chronic kidney disease Is this a current diagnosis for this admission?: Yes (3) Atrial fibrillation Is this a current diagnosis for this admission?: Yes (4) Severe sepsis with septic shock Is this a current diagnosis for this admission?: Yes (5) Hypomagnesemia Is this a current diagnosis for this admission?: Yes - Additional Information Resuscitation Status: Full Code Referrals: NABILA NUNEZ MD [Primary Care Provider] - 12/31/18 11:00 am Prescriptions: Vancomycin HCl [Vancocin Inj 500 mg Vial] 500 mg PO Q6 8 Days #32 vial Home Medications: Aspirin [Ecotrin 81 mg EC Tablet] 81 mg PO DAILY 12/16/18 Atenolol [Tenormin] 50 mg PO DAILY 12/16/18 Calcium Carbonate/Vitamin D3 [Calcium 500-Vit D3 200 Tablet] 1 tab PO DAILY 12/16/18 Gabapentin [Neurontin 100 mg Capsule] 100 mg PO Q8 12/16/18 Isosorbide Mononitrate [Imdur 60 mg Tablet.er] 60 mg PO DAILY 12/16/18 Lisinopril [Zestril] 40 mg PO DAILY 12/16/18 Potassium Chloride [Klor-Con M20] 20 meq PO DAILY 12/16/18 Rivaroxaban [Xarelto] 20 mg PO DAILY 12/16/18 Simvastatin [Zocor 20 mg Tablet] 20 mg PO DAILY 12/16/18 Tramadol HCl [Ultram 50 mg Tablet] 50 mg PO Q6HP PRN 12/16/18 Vancomycin HCl [Vancocin Inj 500 mg Vial] 500 mg PO Q6 8 Days #32 vial 12/24/18 History of Present Illiness History of Present Illness: LAUREN ANG is a 78 year old female with a past medical history of chronic kidney disease, atrial fibrillation, hypertension and hyperlipidemia. Her has been struggling with C. difficile for weeks now. 2 weeks ago the patient had diarrhea from Friday through Friday and then was better. From Friday evening through today she has been having profuse watery diarrhea with nausea but no vomiting. Her appetite is been decreased. She is not drinking as much fluid as she usually does. She presents today with abdominal pain and acute on chronic kidney injury as well as hypotension meeting the criteria for sepsis. She was given IV fluids in the emergency department. Lactic acid was ordered but not collected yet. She was referred to the hospitalist service for admission. Hospital Course Hospital Course: (1) C. difficile colitis Resolved. Afebrile. WBC WNL. Received 7 days of p.o. vancomycin in the hospital. Was discharged on 7 days of vancomycin p.o. to complete a total of 14 days. (2) Acute renal failure superimposed on stage 3 chronic kidney disease Prerenal. Most likely due to septic shock on admission. Electrolytes and volume status were monitored. Started on volume resuscitation. Avoided nephrotoxic meds. (3) Atrial fibrillation Rate controlled. Anticoagulated. Continued on continue telemetry, NOACs, beta-blockers. (4) Severe sepsis with septic shock Due to severe C. difficile colitis. Sepsis protocol initiated and patient was admitted to ICU and transitioned to IMCU once vitals were more stable. Vitals remained stable through the rest of hospitalization. (5) Hypomagnesemia Resolved. Likely due to GI losses. Daily magnesium level. Replaced as needed. Physical Exam Vital Signs: Temp Pulse Resp BP Pulse Ox 98.6 F 34 L 18 144/87 H 80 L 12/24/18 08:30 12/24/18 08:30 12/24/18 08:30 12/24/18 08:30 12/24/18 08:30 Intake & Output 12/24/18 12/25/18 12/26/18 06:59 06:59 06:59 Intake Total 913 Balance 913 Weight 94.6 kg Results Laboratory Results: WBC 6.9 10^3/uL (4.0-10.5) 12/21/18 06:50 RBC 3.97 10^6/uL (3.72-5.28) 12/21/18 06:50 Hgb 12.3 g/dL (12.0-15.5) 12/21/18 06:50 Hct 37.1 % (36.0-47.0) 12/21/18 06:50 MCV 94 fl (80-97) 12/21/18 06:50 MCH 31.0 pg (27.0-33.4) 12/21/18 06:50 MCHC 33.2 g/dL (32.0-36.0) 12/21/18 06:50 RDW 13.1 % (11.5-14.0) 12/21/18 06:50 Plt Count 211 10^3/uL (150-450) 12/21/18 06:50 Lymph % (Auto) 16.8 % (13-45) 12/21/18 06:50 Fleming % (Auto) 10.1 % (3-13) 12/21/18 06:50 Eos % (Auto) 3.6 % (0-6) 12/21/18 06:50 Baso % (Auto) 0.9 % (0-2) 12/21/18 06:50 Absolute Neuts (auto) 4.8 10^3/uL (1.7-8.2) 12/21/18 06:50 Absolute Lymphs (auto) 1.2 10^3/uL (0.5-4.7) 12/21/18 06:50 Absolute Monos (auto) 0.7 10^3/uL (0.1-1.4) 12/21/18 06:50 Absolute Eos (auto) 0.3 10^3/uL (0.0-0.6) 12/21/18 06:50 Absolute Basos (auto) 0.1 10^3/uL (0.0-0.2) 12/21/18 06:50 Total Counted 100 12/16/18 16:40 Seg Neutrophils % 68.6 % (42-78) 12/21/18 06:50 Seg Neuts % (Manual) 85 % (42-78) H 12/16/18 16:40 Band Neutrophils % 5 % (3-5) 12/16/18 16:40 Lymphocytes % (Manual) 4 % (13-45) L 12/16/18 16:40 Monocytes % (Manual) 6 % (3-13) 12/16/18 16:40 Eosinophils % (Manual) 0 % (0-6) 12/16/18 16:40 Basophils % (Manual) 0 % (0-2) 12/16/18 16:40 Abs Neuts (Manual) 21.2 10^3/uL (1.7-8.2) H 12/16/18 16:40 Abs Lymphs (Manual) 0.9 10^3/uL (0.5-4.7) 12/16/18 16:40 Abs Monocytes (Manual) 1.4 10^3/uL (0.1-1.4) 12/16/18 16:40 Absolute Eos (Manual) 0.0 10^3/uL (0.0-0.6) 12/16/18 16:40 Abs Basophils (Manual) 0.0 10^3/uL (0.0-0.2) 12/16/18 16:40 Toxic Vacuolation PRESENT 12/16/18 16:40 Platelet Estimate Cancelled 12/21/18 04:12 Platelet Comment ADEQUATE 12/16/18 16:40 Polychromasia SLIGHT 12/16/18 16:40 PT 18.7 SEC (11.4-15.4) H 12/17/18 05:30 INR 1.55 12/17/18 05:30 Sodium 138.2 mmol/L (137-145) 12/24/18 06:31 Potassium 4.6 mmol/L (3.6-5.0) 12/24/18 06:31 Chloride 103 mmol/L (98-107) 12/24/18 06:31 Carbon Dioxide 28 mmol/L (22-30) 12/24/18 06:31 Anion Gap 7 (5-19) 12/24/18 06:31 BUN 21 mg/dL (7-20) H 12/24/18 06:31 Creatinine 0.89 mg/dL (0.52-1.25) 12/24/18 06:31 Est GFR ( Amer) > 60 (>60) 12/24/18 06:31 Est GFR (Non-Af Amer) Cancelled 12/16/18 16:40 Est GFR (MDRD) Non-Af > 60 (>60) 12/24/18 06:31 Glucose 104 mg/dL (75-110) 12/24/18 06:31 POC Glucose 118 mg/dL (70-110) H 12/17/18 07:46 Lactic Acid 1.9 mmol/L (0.7-2.1) 12/17/18 18:20 Calcium 8.4 mg/dL (8.4-10.2) 12/24/18 06:31 Magnesium 1.6 mg/dL (1.6-2.3) 12/24/18 06:31 Total Bilirubin 0.2 mg/dL (0.2-1.3) 12/21/18 04:12 Direct Bilirubin 0.1 mg/dL (0.0-0.4) 12/21/18 04:12 Neonat Total Bilirubin Not Reportable 12/21/18 04:12 Neonat Direct Bilirubin Not Reportable 12/21/18 04:12 Neonat Indirect Bili Not Reportable 12/21/18 04:12 AST 65 U/L (14-36) H 12/21/18 04:12 ALT 34 U/L (<35) 12/21/18 04:12 Alkaline Phosphatase 63 U/L (38-126) 12/21/18 04:12 Total Protein 4.9 g/dL (6.3-8.2) L 12/21/18 04:12 Albumin 2.3 g/dL (3.5-5.0) L 12/21/18 04:12 EGFR Cancelled 12/16/18 16:40 Stl C. Difficile GDH Ag POSITIVE (NEGATIVE) 12/16/18 19:40 Stl C.difficile Tox A&B NEGATIVE (NEGATIVE) 12/16/18 19:40 Stl C.difficile Tox PCR POSITIVE (NEGATIVE) 12/16/18 19:40 Slides for Path Review Cancelled 12/21/18 04:12 Impressions: Abdomen/Pelvis CT 12/16/18 17:47 IMPRESSION: Generalize diverticulosis. There is also generalized thickening of the bowel wall with mild pericolonic fat stranding diffusely through the colon. Suggests colitis superimposed on diverticulosis. Stroke Is this a Stroke Patient?: No Acute Heart Failure - Is this a Heart Failure Patient?: No
== END 2018-12-24 12:10 | disposition home or self-care (01) | DRG 871 ==
LOC: ER 15:35 → EH 18:13 → EDLOC 18:13 → ICU 22:54 → 5 12-19 12:00
PROVIDERS: ADMIT Hospitalist; ATTEND Family Medicine
DX: A41.4 Sepsis due to anaerobes (principal); R65.21 Severe sepsis with septic shock; A04.72 Enterocolitis due to Clostridium difficile, not specified as recurrent; N17.9 Acute kidney failure, unspecified; N18.3 Chronic kidney disease, stage 3 (moderate); I48.2 Chronic atrial fibrillation; I12.9 Hypertensive chronic kidney disease with stage 1 through stage 4 chronic kidney disease, or unspecified chronic kidney disease; E86.0 Dehydration; M16.0 Bilateral primary osteoarthritis of hip; E83.42 Hypomagnesemia; E78.5 Hyperlipidemia, unspecified; Z87.891 Personal history of nicotine dependence; Z88.8 Allergy status to other drugs, medicaments and biological substances
CPT/HCPCS: 36415; 74176; 80048; 80053; 82962; 83605; 83735; 85025; 85610; 87040; 87045; 87077; 87177; 87186; 87205; 87324; 87449; 87493; 96360; 99285; J1644; J2405; J3370; J3475; J3490; J7030; J7060; J7120

== ENCOUNTER → 2019-07-27 | Outpatient (CLI) | payer MEDICARE, OTHER ==
--- NOTE | 2019-07-27 09:59 | ER [facility] ASSESSMENT REPORT ---
Intake - In the Last 14 days Have you traveled outside [place]?: No Have you been in close contact with someone CONFIRMED: No Worked in Healthcare?: No - Symptoms Subjective Fever([place] feverish): No Chills: No Muscule Aches: No Runny Nose: Yes Sore Throat: No Cough (New or worsening chronic cough): No Shortness of breath: No Nausea or Vomiting: No Headache: Yes Abdominal Pain: No Diarrhea(3 or more loose stools in last 24 hours): Yes - Do you have any of the following Chronic lung disease: Asthma or emphysema or COPD: No Cystic Fibrosis: No Diabetes: No High Blood Pressure: Yes Cardiovascular Disease: Yes Cardiovascular Disease Comment: a fib Chronic Kidney Disease: No Chronic Liver Disease: No Chronic blood disorder like Sickle Cell Disease: No Weak immune system due to disease or medication: No Neurologic condition that limits movement: No Developmental delay - Moderate to Severe: No Recent (within past 2 weeks) or current : No Morbid Obesity (>100 pounds over ideal weight): Yes - Objective Temperature: 96.1 F Pulse Rate: 83 Respiratory Rate: 18 Blood Pressure: 119/68 O2 Sat by Pulse Oximetry: 94 Objective: Given above, testing performed: If Testing Performed: Test Specimen Type Sent to General - General Information source: Patient Notes: Patient presents to the [facility] for evaluation of nasal congestion and diarrhea symptoms and screening for the coronavirus. Patient's had symptoms for the past 2 days. Patient denies any diarrhea episodes today. Patient wanted to be screened for the coronavirus due to her 's health problems. - HPI Associated symptoms: Diarrhea. denies: Fever Exacerbated by: Denies Relieved by: Denies - Related Data Allergies/Adverse Reactions: nickel [Nickel] Allergy (Severe, Verified 12/09/17 11:11) breaks out epinephrine [Epinephrine] Adverse Reaction (Severe, Verified 12/09/17 11:11) makes me pass out Past Medical History - General Information source: Patient - Social History Smoking Status: Former Smoker Lives with: Spouse/Significant other Family History: Reviewed & Not Pertinent - Past Medical History Cardiac Medical History: Reports: Hx Atrial Fibrillation, Hx Hypercholesterolemia, Hx Hypertension - meds x 15 yrs Denies: Hx Coronary Artery Disease, Hx Heart Attack Pulmonary Medical History: Denies: Hx Asthma, Hx Bronchitis, Hx COPD, Hx Pneumonia Neurological Medical History: Denies: Hx Cerebrovascular Accident, Hx Seizures Endocrine Medical History: Denies: Hx Diabetes Mellitus Type 2 Malignancy Medical History: Denies: Hx Breast Cancer, Hx Colorectal Cancer GI Medical History: Denies: Hx Hepatitis, Hx Hiatal Hernia, Hx Ulcer Musculoskeletal Medical History: 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, Denies Hx Fibromyalgia, Denies Hx Gout Skin Medical History: Denies Hx Eczema, Denies Hx Psoriasis Psychiatric Medical History: Denies: Hx Depression Infectious Medical History: Denies: Hx Hepatitis Past Surgical History: Reports: Other - Cataract surgery. Denies: Hx Mastectomy, Hx Open Heart Surgery, Hx Pacemaker Physical Exam - General General appearance: Appears well, Alert In distress: None - HEENT Head: Normocephalic Eyes: Normal Conjunctiva: Normal Nasal: Clear rhinorrhea Mouth/Lips: Normal Mucous membranes: Normal Pharynx: Normal. No: Erythema, Exudate, Tonsillar hypertrophy Neck: Normal, Supple - Respiratory Respiratory status: No respiratory distress Chest status: Nontender Breath sounds: Normal. No: Rales, Rhonchi, Stridor, Wheezing Chest palpation: Normal - Cardiovascular Rhythm: Regular. No: Tachycardia Heart sounds: S1 appreciated, S2 appreciated - Extremities General upper extremity: Normal inspection, Normal ROM General lower extremity: Normal inspection, Normal ROM - Neurological Neuro grossly intact: Yes Cognition: Normal [place] Coma Scale Eye Opening: Spontaneous [place] Coma Scale Verbal: Oriented [place] Coma Scale Motor: Obeys Commands Opal Coma Scale Total: 15 Diagnostic Results Laboratory Results: The patient was evaluated during the global Covid 19 pandemic, and that diagnosis was suspected/considered upon their initial presentation. Their evaluation, treatment and testing was consistent with current guidelines for patients who present with complaints or symptoms that may be related to Covid 19. Patient presents with upper respiratory symptoms worrisome for possible Covid 19. Patient does not have emergency worrying symptoms such as difficulty breathing, shortness of breath, chest pain, pressure, confusion or cyanosis. Patient appears suitable for discharge as vital signs are stable and patient is nontoxic in appearance. Good return precautions have been discussed with patient, patient verbalized understanding and is agreeable with discharge plan of care at this time. Patient Education/Counseling Counseling/Education: Patient was provided with discharge information including: As a person under investigation for Covid 19, the [facility] of Health and Human Services, division of public health advises you to adhere to the following guidance until your test results are reported to you. If your test result is positive, you will receive additional information from your provider and your local health department at that time. Remain at home until you are cleared by the health provider or public health authorities. Keep a log of visitors to your home, notify any visitors to your home of your isolation status. If you plan to move to a new address or leave the county, notify the local health department in your County. Call your doctor or seek care if you have an urgent medical need. Before seeking medical care, call ahead to get instructions from the provider before arriving at the medical office clinic or hospital. Notify them that you are being tested for the virus that causes Covid 19 so that arrangements can be made, as necessary, to prevent transmission to others in the healthcare setting. Next, notify the local health department in your county. If a medical emergency arises and you need to call 911, inform the first responders that you are being tested for the virus that causes Covid 19. Next, notify the local health department in your county. [facility] Discharge - Discharge Clinical Impression: covid 19 screening Upper respiratory infection Qualifiers: URI type: unspecified URI Qualified Code(s): J06.9 - Acute upper respiratory infection, unspecified Condition: Stable Disposition: Home; Selfcare
[2019-07-27 10:27] VITALS: BP 119/68
[2019-07-27 11:46] LABS: A TYPE INFLUENZA AG NEGATIVE (NEGATIVE); B INFLUENZA AG NEGATIVE (NEGATIVE)
== END ==
LOC: RDC 09:53
PROVIDERS: ATTEND Nurse Practitioner Family
DX: Z20.828 Contact with and (suspected) exposure to other viral communicable diseases (principal)
CPT/HCPCS: 87070; 87880; 87804; U0003; 87635